=== PATIENT | female | born 1965 | race Asian ===

== ENCOUNTER 2019-01-13 17:32 | Inpatient (IN) | payer OTHER ==
[2019-01-13 17:52] VITALS: BMI 24.9
--- NOTE | 2019-01-13 18:08 | PDOC ---
History of Present Illness - General Chief Complaint: Alcohol intoxication Stated Complaint: ALCOHOL WITHDRAWAL Time Seen by Provider: 01/13/19 18:06 History Source: Patient Exam Limitations: No Limitations, Clinical Condition - History of Present Illness Initial Comments: Haritha Rodriguez is a 53 yo F w a hx of HTN, recent lyme disease, and alcohol abuse with multiple withdrawal episodes who presents to the ER stating she believes she is in withdrawal. She reports that her last drink was at 10 am this morning. She usually drinks around 1 pint of vodka daily. She states her body is shaking, she feels like she is sweating, and thinks she is currently hallucinating. She is alert to time, place, day, her birthday and which hospital she is in but she states she is very confused and is unsure that what she is seeing is real. She states she has hallucinated a great deal from alcohol withdrawal but has never had any seizures. Patient endorses significant nausea but no emesis. Patient states her hands and tongue are shaking a significant amount. She believes she is sweating a great deal. She endorses feeling extremely nervous. She also believes she is very agitated. She denies any itching, or pins and needle sensation. She endorse hand burning and numbness bilaterally. Denies sensation of ants crawling under he skin. Denies being more aware of sounds, denies sound harshness, denies being frightened by sounds, denies hearing anything disturbing, denies hearing things that she knows are not there. Denies light appearing too bright, denies color differences, denies light hurting her eyes, denies seeing anything that is disturbing her, denies seeing things she knows are not there. Denies her head feeling different. Denies feeling like there is a band around her head. She knows exactly what day it is, the correct date and month. She denies recent fevers, chills, or infections. Denies chest pain, SOB, difficulty breathing, a headache, neck pain, blurry vision, back pain, dysuria, frequency, or urgency. PCP: Ari Deutsch Alcohol Counselor: Melecio Sutton PSH: [facility] Allergies: NKA, NKDA Social Hx: Drinks around 1 pint of vodka daily. Denies smoking or other substance usage. Past History - Past Medical History Allergies/Adverse Reactions: Allergies Allergy/AdvReac Type Severity Reaction Status Date / Time No Known Allergies Allergy Verified 01/13/19 17:52 Home Medications: Ambulatory Orders Aripiprazole 5 mg PO DAILY 01/13/19 Clonidine HCl [Catapres] 0.1 mg PO ASDIR 01/13/19 Disulfiram [Antabuse] 500 mg PO DAILY 01/13/19 Doxycycline Monohydrate [Mondoxyne Nl] 100 mg PO BID 01/13/19 Duloxetine HCl 60 mg PO DAILY 01/13/19 Folic Acid 1 mg PO DAILY 01/13/19 Gabapentin 600 mg PO PRN 01/13/19 Trazodone HCl 150 mg PO HS 01/13/19 COPD: No HTN: Yes - Suicide/Smoking/Psychosocial Hx Smoking History: Never smoked Hx Alcohol Use: Yes Review of Systems - Review of Systems Able to Perform ROS?: Yes Comments:: CONSTITUTIONAL: Present: Diaphoresis Absent: fever, chills, generalized weakness, malaise, loss of appetite HEENT: Absent: rhinorrhea, nasal congestion, throat pain, throat swelling, difficulty swallowing, mouth swelling, ear pain, eye pain, visual Changes CARDIOVASCULAR: Absent: chest pain, syncope, palpitations, irregular heart rate, lightheadedness , peripheral edema RESPIRATORY: Absent: cough, shortness of breath, dyspnea with exertion, orthopnea, wheezing, stridor, hemoptysis GASTROINTESTINAL: Present: Nausea Absent: abdominal pain, abdominal distension, vomiting, diarrhea, constipation, melena, hematochezia GENITOURINARY: Absent: dysuria, frequency, urgency, hesitancy, hematuria, flank pain, genital pain MUSCULOSKELETAL: Absent: myalgia, arthralgia, joint swelling SKIN: Present: Itching Absent: rash, pallor HEMATOLOGIC/IMMUNOLOGIC: Absent: easy bleeding, easy bruising, lymphadenopathy, frequent infections ENDOCRINE: Absent: unexplained weight gain, unexplained weight loss, heat intolerance, cold intolerance NEUROLOGIC: Present: paresthesias, dizziness, unsteady gait Absent: headache, focal weakness, seizure, mental status changes, bladder or bowel incontinence PSYCHIATRIC: Present: Anxiety, hallucinations. Absent: Depression, suicidal or homicidal ideation *Physical Exam - Vital Signs Last Vital Signs Temp Pulse Resp BP Pulse Ox 98.4 F 77 18 210/121 H 99 01/13/19 17:50 01/13/19 17:50 01/13/19 17:50 01/13/19 17:50 01/13/19 17:50 - Physical Exam Comments: GENERAL: Well developed, well nourished. Awake and alert. Moderate distress. HEENT: The tongue is fasciculating. Normocephalic, atraumatic. PERRLA, EOMI. No conjunctival pallor. Sclera are non-icteric. Moist mucous membranes. Oropharynx is clear. NECK: Supple. Full ROM. No JVD. No thyromegaly. No lymphadenopathy. CARDIOVASCULAR: Tachycardic rate. Regular rhythm. No murmurs, rubs, or gallops. Distal pulses are 2+ and symmetric. PULMONARY: No evidence of respiratory distress. Lungs clear to auscultation bilaterally. No wheezing, rales or rhonchi. ABDOMINAL: Soft. Non-tender. Non-distended. No rebound or guarding. Normoactive bowel sounds. MUSCULOSKELETAL Hands are shaking. Normal range of motion at all joints. No bony deformities or tenderness. No CVA tenderness. EXTREMITIES: No cyanosis. No clubbing. No edema. No calf tenderness. SKIN: Warm and diaphoretic. Normal capillary refill. No rashes. No jaundice. NEUROLOGICAL: There is a slight nystagmus to the patient's right direction. Alert, awake, appropriate. Cranial nerves 2-12 intact. No deficits to light touch in face, upper extremities and lower extremities. No motor deficits in the in face, upper extremities and lower extremities. Normal speech. Gait is mildly ataxic. Normal finger to nose. Normal heel to monreal. No dysdiadokokinesis. PSYCHIATRIC: Cooperative. Good eye contact. Appropriate mood and affect. ED Treatment Course - LABORATORY CBC & Chemistry Diagram: 01/13/19 18:25 01/13/19 18:25 - RADIOLOGY Radiograph Interpretation: Head CT: HISTORY PROVIDED: Fall TECHNIQUE: Sequential axial images were obtained from the base of the skull to the vertex. There is no evidence of acute intracranial hemorrhage, mass lesions or infarctions. There is a mild degree of diffuse cerebral atrophy with sulcal widening and ventricular dilatation. There is no evidence of fracture or acute bony pathology. IMPRESSION: No evidence of acute intracranial pathology. Medical Decision Making - Medical Decision Making 53 yo F w a hx of HTN, recent lyme disease, and alcohol abuse with multiple withdrawal episodes who presents to the ER stating she believes she is in withdrawal. Vital Signs Temp Pulse Resp BP Pulse Ox 98.4 F 72 20 216/122 H 100 01/13/19 17:50 01/13/19 18:34 01/13/19 18:34 01/13/19 18:34 01/13/19 18:34 DDx IBNLT: Alcohol withdrawal - hallucinations, seizure, delirium tremens, Wernicke encephelopathy vs korsakof CIWA score - 23 Plan: Labs, Urine, EKG, cardiac monitoring, thiamine, banana bag, Admit to hospital. MDM: Patient fuldfils the triad for wernicke encephelopathy 1) confusion 2) Gait disturbance 3) horizontal nystagmus for opthalmoplegia Labs: Remarkable for hypokalemia - Repleting with oral potassium EKG: NS rate of 73, ID 138, Qtc - 460, Inverted T wave in aVL, aVR, V1-V4. No St elevations or depressions. Head CT: increased brain related atrophy. No acute pathology. Disposition: Admit to telemetry hospital gan for withdrawal, wernicke encephalopathy, electrolyte corrections, and further disposition. - Patient Microblogged for admission. - Patient accepted by hospitalist for admission. *DC/Admit/Observation/Transfer Diagnosis at time of Disposition: Alcohol withdrawal hallucinosis, Wernicke encephalopathy, Hypokalemia - Discharge Dispostion Condition at time of disposition: Guarded Decision to Admit order: Yes - Referrals Referrals: Ari Deutsch [Primary Care Provider] - - Patient Instructions Printed Discharge Instructions: DI for Alcohol Abuse - Post Discharge Activity CIWA Score Nausea/Vomitin-Int. Nausea w/Dry Heave Muscle Tremors: 4-Moderate,w/Arms Extend Anxiety: 4-Mod. Anxious/Guarded Agitation: 4-Moderately Restless Paroxysmal Sweats: 4-Forehead w/Sweat Beads Orientation: 0-Oriented Tacttile Disturbances: 3-Moderate Itch/Numb/Burn Auditory Disturbances: 0-None Visual Disturbances: 0-None Headache: 0-None Present CIWA-Ar Total Score: 23 - Admission Criteria OASAS Guidelines: Admission for Medically Managed Detox: Requires at least one of the followin. CIWA greater than 12 2. Seizures within the past 24 hours 3. Delirium tremens within the past 24 hours 4. Hallucinations within the past 24 hours 5. Acute intervention needed for co occurring medical disorder 6. Acute intervention needed for co occurring psychiatric disorder 7. Severe withdrawal that cannot be handled at a lower level of care (continued vomiting, continued diarrhea, abnormal vital signs) requiring intravenous medication and/or fluids 8. Patient presents the following: CIWA greater than 12, Severe withdrawal requiring intravenous medication and/or fluids Admission Criteria Met: Admission criteria met
[2019-01-13] MEDS ORDERED: chlordiazePOXIDE HCL 25 MG CAPSULE PO ONE (18:12)
[2019-01-13] MEDS ORDERED: FOLIC ACID INJECTION - 1 MG, THIAMINE HCL 100 MG, MULTIVIT INJECTION ADULT 10 ML in SOD... IVPB ONE (18:12)
[2019-01-13] MEDS ORDERED: chlordiazePOXIDE HCL 25 MG CAPSULE ONE (18:18)
[2019-01-13] MEDS ORDERED: LORazepam 2 MG/ML SDV VIAL ONE (18:19)
[2019-01-13 18:35] LABS: BASO % 0.4 % (0-2.0); EOS % 0.1 % (0-4.5); HEMATOCRIT 40.8 % (32.4-45.2); HEMOGLOBIN 13.8 GM/dL (10.7-15.3); LYMPH % 31.4 % (8-40); MCH 32.9 pg (25.7-33.7); MCHC 33.8 g/dl (32.0-36.0); MEAN CELL VOLUME 97.3 fl (80-96); MEAN PLT VOLUME 8.7 fl (7.5-11.1); MONO % 7.6 % (3.8-10.2); NEUT % 60.5 % (42.8-82.8); PLATELET COUNT 363 K/MM3 (134-434); RBC 4.19 M/mm3 (3.60-5.2); RDW 13.5 % (11.6-15.6); WHITE BLOOD COUNT 9.4 K/mm3 (4.0-10.0)
[2019-01-13 18:52] LABS: INR 1.02 (0.83-1.09)
[2019-01-13 19:03] LABS: ALBUMIN 3.9 g/dl (3.4-5.0); BILIRUBIN,TOTAL 0.4 mg/dL (0.2-1); BLOOD UREA NITROGEN 10.5 mg/dL (7-18); CALCIUM 9.2 mg/dL (8.5-10.1); CREATININE 0.8 mg/dL (0.55-1.3); POTASSIUM 3.3 mmol/L (3.5-5.1); TOT PROT 7.3 g/dl (6.4-8.2)
[2019-01-13] MEDS ORDERED: THIAMINE HCL 200 MG/2 ML VIAL IVPB ONE ×2 (19:11→23:55)
[2019-01-13] MEDS ORDERED: POTASSIUM CHLORIDE ORAL LIQUID 20 MEQ/15 ML PO ONE (19:45)
[2019-01-13] MEDS ORDERED: POTASSIUM CHLORIDE TABS 20 MEQ TABLET.ER (FP) PO ONE (19:46)
[2019-01-13] MEDS ORDERED: cloNIDine HCL 0.1 MG TABLET PO ONE (19:49)
[2019-01-13] MEDS ORDERED: cloNIDine HCL 0.1 MG TABLET ONE (19:50)
--- NOTE | 2019-01-13 19:52 | PDOC ---
Documentation entered by Paula Velazquez SCRIBE, acting as scribe for Darius Bassett MD. Darius Bassett MD: This documentation has been prepared by the scribe, Paula Velazquez SCRIBE, under my direction and personally reviewed by me in its entirety. I confirm that the documentation accurately reflects all work, treatment, procedures, and medical decision making performed by me. Attending Attestation - Resident Resident Name: Shimon Gonsalves - ED Attending Attestation I have performed the following: I have examined & evaluated the patient, The case was reviewed & discussed with the resident, I agree w/resident's findings & plan, Exceptions are as noted - HPI HPI: 01/13/19 20:00 The patient is a 53-year-old female, with a past medical history of HTN and chronic alcohol abuse, who presents to the ED with withdrawal symptoms. The patients last drink was at 10 AM this morning and she usually drinks 1 pint of vodka daily. She now states that she is experiencing sweating, shaking, and hallucinating. - Physicial Exam PE: 01/13/19 19:48 Patient is somnolent but easily arousable, well-nourished, in no distress Normocephalic and atraumatic PERRLA, EOMI, right endpoint nystagmus is noted, fatigable CTA RRR Abdomen is soft, nontender, nondistended + Bilateral trauma AOx3, moving all extremities symmetrically, gait-ataxic - Medical Decision Making 01/13/19 19:50 Patient is a 53-year-old female with history of chronic alcohol abuse who presents with elevated blood pressure, agitation and ataxic gait. Patient's symptoms are consistent with acute alcohol withdrawal. Wernicke's encephalopathy suspected. We'll administer multivitamins, thiamine and folic acid. We'll obtain CBC/CMP. We'll consider administration of benzodiazepines for control of symptoms. Likely admission.
[2019-01-13 20:06] LABS: MAGNESIUM 2.2 mg/dL (1.8-2.4)
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
--- NOTE | 2019-01-13 23:50 | PN ---
Teaching Attending Note Name of Resident: Mayte Weber ATTENDING PHYSICIAN STATEMENT I saw and evaluated the patient. I reviewed the resident's note and discussed the case with the resident. I agree with the resident's findings and plan as documented. SUBJECTIVE: Seen and examined; please see resident note for HPI/PMH/PSH/FH/SH/ROS discussion. Briefly, this is a 53 y/o female presenting with EtOH WD sx, last drink stated at 10AM. Concern noted by ER of Wernicke's encephalopathy. Noted to have SBP >200 OBJECTIVE: NAD, AAO, Resting comfortably in bed No further hallucination, normal speech, poor insight, not altered. CIWA negligable RRR s1/[address] reviewed; no evidence intracranial pathology EKG reviewed CBC with mild macrocytosis to 97, coags wnl, K 3.3, normal NH4, EtOH 17.7 ASSESSMENT AND PLAN: Patient presents with alcohol WD; there was concern in ER for Wernicke's # Alcohol WD/Alcohol Abuse # HTN Urgency # Gait disturbances # Mactrocytosis # Hypokalemia Will give the 500 dose of thiamine but not fully convinced is wernickes given the lack of optic findings and lack of gait disturbance. Can consider re-eval in AM. Can check MRI if suspicion persists (no 'findings' for wernickes persay on MRI but T2 weighted, etc. can have some subtle changes).
[2019-01-14] MEDS ORDERED: chlordiazePOXIDE HCL 10 MG CAPSULE PO PRN (00:31)
[2019-01-14] MEDS ORDERED: POTASSIUM CHLORIDE TABS 10 MEQ TABLET.ER (FP) PO SCH (00:33)
[2019-01-14 00:58] LABS: EPI CELLS 10.4 /HPF (0-5/HPF); HYALINE CASTS 10 /lpf (0-8); PH,URINE 7.5 (5.0-8.0); URINE APPEARANCE CLEAR; URINE BACTERIA 180.9 /hpf (NEGATIVE); URINE BILIRUBIN NEGATIVE (NEGATIVE); URINE COLOR DK YELLOW; URINE GLUCOSE (UA) NEGATIVE (NEGATIVE); URINE KETONE TRACE (NEGATIVE); URINE LEUK ESTERASE TRACE (NEGATIVE); URINE NITRITE NEGATIVE (NEGATIVE); URINE PROTEIN TRACE (NEGATIVE); URINE RBC 1 /hpf (0-4); URINE WBC 4 /hpf (0-5)
[2019-01-14 01:14] LABS: COCAINE, UR NEGATIVE ng/ml (CUTOFF=300); METHADONE, UR NEGATIVE ng/ml (CUTOFF=300); OPIATES, URI NEGATIVE ng/ml (CUTOFF=300); PHENCYCLIDINE,URINE NEGATIVE ng/ml (CUTOFF=25); URINE AMPHETAMINES NEGATIVE ng/ml (CUTOFF=500); URINE BARBITURATES NEGATIVE ng/ml (CUTOFF=200)
[2019-01-14 01:21] LABS: URINE BENZODIAZEPINES POSITIVE ng/ml (CUTOFF=200)
[2019-01-14] MEDS ORDERED: cloNIDine HCL 0.1 MG TABLET PO SCH ×3 (01:45→22:00)
[2019-01-14] MEDS ORDERED: PATIENT'S OWN MEDICATION (NON-FORMULARY) (Gabapentin [Gabapentin] 600 MG) PO SCH (01:45)
[2019-01-14] MEDS ORDERED: cloNIDine HCL 0.1 MG TABLET ONE (01:48)
[2019-01-14] MEDS ORDERED: LISINOPRIL 5 MG TABLET (FP) ONE ×2 (06:03→12:46)
[2019-01-14] MEDS ORDERED: THIAMINE HCL 200 MG/2 ML VIAL ONE (06:08)
[2019-01-14] MEDS: THIAMINE HCL 200 MG/2 ML VIAL IVPB SCH ×2 (06:15→14:02)
[2019-01-14] MEDS ORDERED: DISULFIRAM 500 MG PO SCH (10:00)
[2019-01-14] MEDS ORDERED: LISINOPRIL 5 MG TABLET (FP) PO SCH (10:00)
[2019-01-14] MEDS ORDERED: THIAMINE HCL 200 MG/2 ML VIAL IVPB SCH (10:00)
[2019-01-14] MEDS: FOLIC ACID 1 MG TABLET (FP) PO SCH (10:10)
[2019-01-14] MEDS: POTASSIUM CHLORIDE TABS 20 MEQ TABLET.ER (FP) PO SCH (10:10)
[2019-01-14] MEDS: ENOXAPARIN NA (PORCINE) 40 MG/0.4 ML DISP.SYRIN SQ SCH (10:10)
[2019-01-14] MEDS: ARIPiprazole 5 MG TABLET (FP) PO SCH (10:10)
[2019-01-14] MEDS ORDERED: LISINOPRIL 10 MG TABLET (FP) PO ONE (12:27)
[2019-01-14] MEDS ORDERED: FOLIC ACID INJECTION - 1 MG, THIAMINE HCL 100 MG, MULTIVIT INJECTION ADULT 10 ML in SOD... IVPB ONE (13:10)
--- NOTE | 2019-01-14 13:53 | PN ---
Teaching Attending Note Name of Resident: Zoey Arthur ATTENDING PHYSICIAN STATEMENT I saw and evaluated the patient. I reviewed the resident's note and discussed the case with the resident. I agree with the resident's findings and plan as documented. SUBJECTIVE:reports feeling anxious with mild DEMARCO. came here for detox. is not complaint with home medications. denies CP, SOB, fever, chills, N/V/C/D, auditory and visual hallucinations OBJECTIVE: Last Vital Signs Temp Pulse Resp BP Pulse Ox 98.0 F 62 17 167/108 H 97 01/14/19 07:24 01/14/19 07:24 01/14/19 07:24 01/14/19 07:24 01/14/19 07:24 General mildly anxious CV S1 S2 RRR no murmur/rub/gallop lungs CTA B/L no wheezing/rales/rhonchi Abdomen soft NT/ND Extremities no tremors ASSESSMENT AND PLAN: 53yo F with PMH depression, HTN adn continuous ETOH dependence presented to the ER for detox and found to have HTN urgency 1. Acute ETOH withdrawal- CIWA 7. on librium detox. will give banana bag. IVF. not sure if she is interested in inpatient program once detox is completed. halfway house counselor on perils of continued ETOH use 2. HTN urgency- received clonidine 0.1mg x1 and lisinopril 10mg. will start clonidine BID standing and cont with lisinopril. will titrate to optimize BP slowly. Head CT noted 3. hypokalmeia- Kcl po and IV 4. depression- cont home medications 5. DVT ppx- lovenox
[2019-01-14] MEDS ORDERED: amLODIPine BESYLATE 5 MG TABLET (FP) ONE (15:04)
[2019-01-14] MEDS: amLODIPine BESYLATE 10 MG TABLET (FP) PO SCH (15:15)
[2019-01-14] MEDS ORDERED: hydrALAZINE HCL 25 MG TABLET (FP) PO ONE (15:57)
--- NOTE | 2019-01-14 15:57 | PN ---
Physical Exam: SUBJECTIVE: Patient seen and examined at bedside. pt was anxious and slightly tremulous. pt stated she felt like nothing is real but denied hallucinations. pt states she feels confused OBJECTIVE: Vital Signs Period Temp Pulse Resp BP Sys/Smith Pulse Ox Last 24 Hr 98.0 F-98.4 F 58-77 17-20 167-216/97-122 97-100 GENERAL: The patient is awake, alert, and oriented, in no acute distress. HEAD: Normal with no signs of trauma. ENT: moist mucous membranes, mild tongue fasciculations LUNGS: Breath sounds equal, clear to auscultation bilaterally, no wheezes, no crackles, no accessory muscle use. HEART: Regular rate and rhythm, S1, S2 without murmur, rub or gallop. ABDOMEN: Soft, nontender, nondistended, normoactive bowel sounds, no guarding EXTREMITIES: 2+ pulses, warm, well-perfused, no edema. PSYCH: Normal mood, normal affect. SKIN: Warm, dry, normal turgor, no rashes or lesions noted CIWA 7 at around 7 am Laboratory Last Values WBC 9.4 K/mm3 (4.0-10.0) 01/13/19 18:25 RBC 4.19 M/mm3 (3.60-5.2) 01/13/19 18:25 Hgb 13.8 GM/dL (10.7-15.3) 01/13/19 18:25 Hct 40.8 % (32.4-45.2) 01/13/19 18:25 MCV 97.3 fl (80-96) H 01/13/19 18:25 MCH 32.9 pg (25.7-33.7) 01/13/19 18:25 MCHC 33.8 g/dl (32.0-36.0) 01/13/19 18:25 RDW 13.5 % (11.6-15.6) 01/13/19 18:25 Plt Count 363 K/MM3 (134-434) 01/13/19 18:25 MPV 8.7 fl (7.5-11.1) 01/13/19 18:25 Absolute Neuts (auto) 5.7 K/mm3 (1.5-8.0) 01/13/19 18:25 Neutrophils % 60.5 % (42.8-82.8) 01/13/19 18:25 Lymphocytes % 31.4 % (8-40) 01/13/19 18:25 Monocytes % 7.6 % (3.8-10.2) 01/13/19 18:25 Eosinophils % 0.1 % (0-4.5) 01/13/19 18:25 Basophils % 0.4 % (0-2.0) 01/13/19 18:25 Nucleated RBC % 0 % (0-0) 01/13/19 18:25 ESR 28 mm/hr (0-30) 01/13/19 18:22 PT with INR 12.00 SEC (9.7-13.0) 01/13/19 18:25 INR 1.02 (0.83-1.09) 01/13/19 18:25 Sodium 144 mmol/L (136-145) 01/13/19 18:25 Potassium 3.3 mmol/L (3.5-5.1) L 01/13/19 18:25 Chloride 106 mmol/L (98-107) 01/13/19 18:25 Carbon Dioxide 30 mmol/L (21-32) 01/13/19 18:25 Anion Gap 7 MMOL/L (8-16) L 01/13/19 18:25 BUN 10.5 mg/dL (7-18) 01/13/19 18:25 Creatinine 0.8 mg/dL (0.55-1.3) 01/13/19 18:25 Est GFR (CKD-EPI)AfAm 96.19 01/13/19 18:25 Est GFR (CKD-EPI)NonAf 83.00 01/13/19 18:25 Random Glucose 101 mg/dL (74-106) 01/13/19 18:25 Calcium 9.2 mg/dL (8.5-10.1) 01/13/19 18:25 Magnesium 2.2 mg/dL (1.8-2.4) 01/13/19 18:25 Total Bilirubin 0.4 mg/dL (0.2-1) 01/13/19 18:25 AST 18 U/L (15-37) 01/13/19 18:25 ALT 14 U/L (13-61) 01/13/19 18:25 Alkaline Phosphatase 68 U/L (45-117) 01/13/19 18:25 Ammonia 20.10 umol/L (11-32) 01/13/19 18:25 C-Reactive Protein < 0.3 MG/DL (0.00-0.3) 01/13/19 18:22 Total Protein 7.3 g/dl (6.4-8.2) 01/13/19 18:25 Albumin 3.9 g/dl (3.4-5.0) 01/13/19 18:25 Vitamin B12 1385 pg/ml (193-986) H 01/13/19 18:22 Urine Color Dk yellow 01/14/19 00:30 Urine Appearance Clear 01/14/19 00:30 Urine pH 7.5 (5.0-8.0) 01/14/19 00:30 Ur Specific [place] 1.029 (1.010-1.035) 01/14/19 00:30 Urine Protein Trace (NEGATIVE) 01/14/19 00:30 Urine Glucose (UA) Negative (NEGATIVE) 01/14/19 00:30 Urine Ketones Trace (NEGATIVE) H 01/14/19 00:30 Urine Blood Negative (NEGATIVE) 01/14/19 00:30 Urine Nitrite Negative (NEGATIVE) 01/14/19 00:30 Urine Bilirubin Negative (NEGATIVE) 01/14/19 00:30 Urine Urobilinogen 1.0 mg/dL (0.2-1.0) 01/14/19 00:30 Ur Leukocyte Esterase Trace (NEGATIVE) 01/14/19 00:30 Urine WBC (Auto) 4 /hpf (0-5) 01/14/19 00:30 Urine RBC (Auto) 1 /hpf (0-4) 01/14/19 00:30 Urine Casts (Auto) 10 /lpf (0-8) 01/14/19 00:30 U Epithel Cells (Auto) 10.4 /HPF (0-5/HPF) 01/14/19 00:30 Urine Bacteria (Auto) 180.9 /hpf (NEGATIVE) 01/14/19 00:30 Salicylates < 1.7 mg/dL (2.8-20) L 01/13/19 18:25 Opiates Screen Negative ng/ml (MXGQLJ=553) 01/14/19 00:30 Methadone Screen Negative ng/ml (YICOJM=400) 01/14/19 00:30 Acetaminophen < 2.0 ug/mL (10-30) L 01/13/19 18:25 Barbiturate Screen Negative ng/ml (VRAHTK=628) 01/14/19 00:30 Phencyclidine Screen Negative ng/ml (CUTOFF=25) 01/14/19 00:30 Ur Amphetamines Screen Negative ng/ml (SJSOAI=763) 01/14/19 00:30 MDMA (Ecstasy) Screen Negative ng/ml (BWAEPD=685) 01/14/19 00:30 Benzodiazepines Screen Positive ng/ml (EUJVSW=560) A* 01/14/19 00:30 Cocaine Screen Negative ng/ml (HOJOTK=570) 01/14/19 00:30 U Marijuana (THC) Screen Negative ng/ml (CUTOFF=50) 01/14/19 00:30 Alcohol, Quantitative 17.7 mg/dL (0.0-5.0) H 01/13/19 18:25 Active Medications Amlodipine Besylate (Norvasc -) 10 mg PO DAILY [facility] Last Admin: 01/14/19 15:15 Dose: 10 mg Aripiprazole (Abilify) 5 mg PO DAILY [facility] Last Admin: 01/14/19 10:10 Dose: 5 mg Chlordiazepoxide HCl (Librium -) 10 mg PO Q12H PRN PRN Reason: Signs/symptoms of Withdrawal Stop: 01/17/19 23:59 Chlordiazepoxide HCl (Librium -) 10 mg PO Q8H PRN PRN Reason: Signs/symptoms of Withdrawal Stop: 01/16/19 23:59 Chlordiazepoxide HCl (Librium -) 25 mg PO Q8H [facility] Stop: 01/15/19 21:01 Chlordiazepoxide HCl (Librium -) 15 mg PO Q8H [facility] Stop: 01/16/19 21:01 Chlordiazepoxide HCl (Librium -) 10 mg PO Q8H [facility] Stop: 01/17/19 21:01 Chlordiazepoxide HCl (Librium -) 10 mg PO ONCE ONE Stop: 01/18/19 05:01 Clonidine (Catapres -) 0.1 mg PO BID [facility] Enoxaparin Sodium (Lovenox -) 40 mg SQ DAILY [facility] Last Admin: 01/14/19 10:10 Dose: 40 mg Folic Acid (Folic Acid -) 1 mg PO DAILY [facility] Last Admin: 01/14/19 10:10 Dose: 1 mg Lisinopril (Prinivil) 5 mg PO DAILY [facility] Last Admin: 01/14/19 10:10 Dose: 5 mg Potassium Chloride (K-Dur -) 40 meq PO DAILY [facility] Last Admin: 01/14/19 10:10 Dose: 40 meq Trazodone HCl (Desyrel -) 150 mg PO [facility] ASSESSMENT/PLAN: 53yo female with history of chronic alcohol abuse, depression, HTN, and Lyme disease p/w alcohol withdrawal. The patient has a history of heaving drinking for the last 5 years and drinks about 1 pint vodka a day. She has been in rehab multiple times, the last of which she was discharged about 3 weeks ago. She has been attending outpatient therapy with Lesley Majano at [facility]. Her last reported drink was 01/12/19 . 01/13 she began having diaphoresis, tremors, and visual hallucinations. Today, on exam pt had CIWA of 7. Today pt SBP> 180. Alcohol abuse/ withdrawal -c/w banana bag -c/w thiamine -patient possibly interested in detox program HTN urgency -pt continued on home clonidine dose -pt started on lisinopril 10 , BP still elevated -s/p Hydralazine 25 PO -Hydralazine 10 ivp prn if BP>180. Hypokalemia -s/p KCl Depression -c/w home meds DVT ppx: lovenox Dispo: possibly rehab/ [facility] tomorrow Visit type - Emergency Visit Emergency Visit: Yes ED Registration Date: 01/13/19 Care time: The patient presented to the Emergency Department on the above date and was hospitalized for further evaluation of their emergent condition. - New Patient This patient is new to me today: Yes Date on this admission: 01/14/19 - Critical Care Critical Care patient: No - Discharge Referral Referred to [facility] Med P.C.: No ATTENDING PHYSICIAN STATEMENT I saw and evaluated the patient. I reviewed the resident's note and discussed the case with the resident. I agree with the resident's findings and plan as documented. SUBJECTIVE: OBJECTIVE: ASSESSMENT AND PLAN:
[2019-01-14] MEDS ORDERED: hydrALAZINE HCL 20 MG/ML VIAL IVPUSH PRN ×2 (16:06→16:13)
--- NOTE | 2019-01-14 17:03 | EKG ---
Test Reason : Blood Pressure : / mmHG Vent. Rate : 073 BPM Atrial Rate : 073 BPM P-R Int : 138 ms QRS Dur : 090 ms QT Int : 418 ms P-R-T Axes : 048 062 051 degrees QTc Int : 460 ms NORMAL SINUS RHYTHM POSSIBLE LEFT ATRIAL ENLARGEMENT NONSPECIFIC T WAVE ABNORMALITY PROLONGED QT ABNORMAL ECG NO PREVIOUS ECGS AVAILABLE Confirmed by DEYA OROZCO MD ([id number]) on 01/14/2019 5:03:10 PM Referred By: Confirmed By:DEYA OROZCO MD
[2019-01-14] MEDS ORDERED: chlordiazePOXIDE 5 MG CAPSULE ONE (18:10)
[2019-01-14] MEDS: chlordiazePOXIDE HCL 25 MG CAPSULE PO SCH (20:36)
[2019-01-14] MEDS: cloNIDine HCL 0.1 MG TABLET PO SCH (21:15)
[2019-01-14] MEDS ORDERED: traZODone HCL 50 MG TABLET (FP) PO SCH (22:00)
[2019-01-15] MEDS: chlordiazePOXIDE HCL 25 MG CAPSULE PO SCH (04:24)
[2019-01-15 06:20] LABS: HEMATOCRIT 36.4 % (32.4-45.2); HEMOGLOBIN 12.5 GM/dL (10.7-15.3); MCH 33.3 pg (25.7-33.7); MCHC 34.5 g/dl (32.0-36.0); MEAN CELL VOLUME 96.4 fl (80-96); MEAN PLT VOLUME 9.1 fl (7.5-11.1); PLATELET COUNT 302 K/MM3 (134-434); RBC 3.77 M/mm3 (3.60-5.2); RDW 13.6 % (11.6-15.6); WHITE BLOOD COUNT 7.6 K/mm3 (4.0-10.0)
[2019-01-15] MEDS: cloNIDine HCL 0.1 MG TABLET PO SCH (06:33)
[2019-01-15 06:45] LABS: ALBUMIN 3.3 g/dl (3.4-5.0); BILIRUBIN,TOTAL 0.8 mg/dL (0.2-1); BLOOD UREA NITROGEN 5.8 mg/dL (7-18); CREATININE 0.7 mg/dL (0.55-1.3); POTASSIUM 3.6 mmol/L (3.5-5.1); TOT PROT 6.4 g/dl (6.4-8.2)
[2019-01-15] MEDS ORDERED: LISINOPRIL 20 MG TABLET (FP) PO SCH (10:00)
[2019-01-15] MEDS ORDERED: PT OWN MED DRAWER 7, Y5N ONE (10:16)
[2019-01-15] MEDS: FOLIC ACID 1 MG TABLET (FP) PO SCH (10:19)
[2019-01-15] MEDS: amLODIPine BESYLATE 10 MG TABLET (FP) PO SCH (10:19)
[2019-01-15] MEDS: ENOXAPARIN NA (PORCINE) 40 MG/0.4 ML DISP.SYRIN SQ SCH (10:19)
[2019-01-15] MEDS: ARIPiprazole 5 MG TABLET (FP) PO SCH (10:20)
[2019-01-15] MEDS: POTASSIUM CHLORIDE TABS 20 MEQ TABLET.ER (FP) PO SCH (10:20)
--- NOTE | 2019-01-15 11:03 | PN ---
Teaching Attending Note Name of Resident: Zoey Arthur ATTENDING PHYSICIAN STATEMENT I saw and evaluated the patient. I reviewed the resident's note and discussed the case with the resident. I agree with the resident's findings and plan as documented. SUBJECTIVE:mildly anxious. denies Cp, SOB, fever, chills, blurred vision, DEMARCO, N/ V/C/D OBJECTIVE: Last Vital Signs Temp Pulse Resp BP Pulse Ox 97.9 F 72 18 138/99 98 01/15/19 06:00 01/15/19 06:00 01/15/19 06:00 01/15/19 06:00 01/14/19 21:00 General mildly anxious HEENT no nystagmus CV S1 S2 RRR no murmur/rub/gallop lungs CTA B/L no wheezing/rales/rhonchi Abdomen soft NT/ND Extremities no tremors ASSESSMENT AND PLAN: 53yo F with PMH depression, HTN adn continuous ETOH dependence presented to the ER for detox and found to have HTN urgency 1. Acute ETOH withdrawal- CIWA 3. on librium detox. not interested in inpatient rehab. 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 HTN urgency-received hydralazine 10mg IVP and started on norvasc. BP well controlled now. clonidine was held this AM. will cont with norvasc and lisinopril at this time. will see if clonidine needs to be re-started. will likely require multiple drugs. stressed importance of being complaint with meds daily regardless of symptoms and need for further cardiac workup by per primary. 3. hypokalmeia- resolved 4. depression- cont home medications 5. DVT ppx- lovenox 6. plan to transfer to [facility] today to complete detox regimen. awaiting to hear if bed is available at [facility] and acceptance by facility
[2019-01-15] MEDS ORDERED: cloNIDine HCL 0.1 MG TABLET PO SCH (11:21)
[2019-01-15] MEDS ORDERED: HYDROCHLOROTHIAZIDE 25 MG TABLET (FP) PO SCH (12:15)
[2019-01-15 12:45] VITALS: BP 120/83; PULSE 78; TEMP 98.2
--- NOTE | 2019-01-15 16:44 | DS ---
Physical Exam: SUBJECTIVE: Patient seen and examined at bedside. Pt has no acute complaints. Pt states she is feeling better OBJECTIVE: Vital Signs Period Temp Pulse Resp BP Sys/Smith Pulse Ox Last 24 Hr 97.9 F-98.5 F 68-88 17-20 120-179/82-113 98-98 PHYSICAL EXAM GENERAL: The patient is awake, alert, and fully oriented, in no acute distress. LUNGS: Breath sounds equal, clear to auscultation bilaterally, no wheezes, no crackles, no accessory muscle use. HEART: Regular rate and rhythm, S1, S2 without murmur, rub or gallop. ABDOMEN: Soft, nontender, nondistended, normoactive bowel sounds, no guarding EXTREMITIES: 2+ pulses, warm, well-perfused, no edema. NEUROLOGICAL: Normal speech, gait not observed. SKIN: Warm, dry, normal turgor, no rashes or lesions noted. LABS Laboratory Results - last 24 hr 01/15/19 01/15/19 05:40 05:40 WBC 7.6 RBC 3.77 Hgb 12.5 Hct 36.4 MCV 96.4 H MCH 33.3 MCHC 34.5 RDW 13.6 Plt Count 302 MPV 9.1 Sodium 141 Potassium 3.6 Chloride 105 Carbon Dioxide 31 Anion Gap 5 L BUN 5.8 L Creatinine 0.7 Est GFR (CKD-EPI)AfAm 113.05 Est GFR (CKD-EPI)NonAf 97.54 Random Glucose 109 H Calcium 9.0 Total Bilirubin 0.8 AST 18 ALT 14 Alkaline Phosphatase 67 Total Protein 6.4 Albumin 3.3 L HOSPITAL COURSE: Date of Admission:01/13/19 53yo female with history of chronic alcohol abuse, depression, HTN, and Lyme disease p/w alcohol withdrawal. The patient has a history of heaving drinking for the last 5 years and drinks about 1 pint vodka a day. She has been in rehab multiple times, the last of which she was discharged about 3 weeks ago. She has been attending outpatient therapy with Lesley Majano at [facility]. Her last reported drink was 01/12/19 . 01/13 she began having diaphoresis, tremors, and visual hallucinations. Pt was placed on librium protocol, thiamine, banana bag, KCl to replete electrolytes. While admitted, the pt had SBP> 180. Pt was given Lisinopril 15, norvasc 10, clonidine 10, and hydralazine 25. The BP stabilized. The pt is instructed to take Lisinopril 20, norvasc 10, and hctz 25 at home and to follow up with her PCP for BP management. The pt is instructed not to take her clonidine any more. If HTN persists, pt should request further workup for other causes of htn. the pt was instructed to no longer take disulfram when drinking. Pt is going to [facility] to complete the detox. Date of Discharge: 01/15/19 Minutes to complete discharge: 38 Discharge Summary Reason For Visit: ALCOHOL WITHDRAWAL Condition: Improved - Instructions Diet, Activity, Other Instructions: You were admitted to the hospital for alcohol withdrawal. You were treated with Librium and fluids. Abnormal Findings: -While you were in the hospital, your blood pressure was elevated, you were treated with several blood pressure medications. Medications: -Please continue to take Lisinopril 20mg, Hydrochlorothiazide 25mg, Norvasc 10 mg once a day for your blood pressure -Please do not take the Clonidine -DO NOT take Disulfram while you drink alcohol -Please continue to take your other home medications as prescribed. You MUST follow up with your primary care physician, Dr. Shen to continue to manage your blood pressure. If your high blood pressure persists, your physician should evaluate you for other causes of high blood pressure. Please maintain a low salt diet. You are being discharged to [facility]. Please return to the ER if you have any signs or symptoms of chest pain, shortness of breath, uncontrollable fever, chills, nausea, vomiting, numbness, tingling, or weakness in any part of your body, changes in vision, or slurred speech. Please return to the ER if symptoms persist, worsen, or new symptoms arise. Referrals: Claudia Lackey DO [Staff Physician] - Disposition: PHYSICAL REHABILATION FACILITY - Home Medications Comprehensive Discharge Medication List: Ambulatory Orders Aripiprazole 5 mg PO DAILY 01/13/19 Disulfiram [Antabuse] 250 mg PO DAILY 01/13/19 Duloxetine HCl 60 mg PO DAILY 01/13/19 Folic Acid 1 mg PO DAILY 01/13/19 Trazodone HCl 150 mg PO HS 01/13/19 Rosuvastatin Calcium [Crestor] 10 mg PO DAILY 01/14/19 Amlodipine Besylate [Norvasc -] 10 mg PO DAILY tablet 01/15/19 Azilsartan Med/Chlorthalidone [Edarbyclor 40-12.5 mg Tablet] 1 each PO DAILY 06/24 Clonidine HCl 0.1 mg PO BID PRN 01/15/19 Doxycycline Hyclate 100 mg PO BID 01/15/19 Ergocalciferol [Vitamin D2] 50,000 unit PO Q7D@1000 01/15/19 Gabapentin [Neurontin] 300 mg PO TID 01/15/19 Hydrochlorothiazide [Hctz -] 25 mg PO DAILY tablet 01/15/19 Lisinopril [Prinivil] 20 mg PO DAILY tablet 01/15/19 Thiamine HCl [B-1] 100 mg PO DAILY 01/15/19 This patient is new to me today: No Emergency Visit: No Critical Care patient: No - Discharge Referral Referred to [facility] Med P.C.: No ATTENDING PHYSICIAN STATEMENT I saw and evaluated the patient. I reviewed the resident's note and discussed the case with the resident. I agree with the resident's findings and plan as documented. SUBJECTIVE: OBJECTIVE: ASSESSMENT AND PLAN:
[2019-01-16] MEDS ORDERED: chlordiazePOXIDE 5 MG CAPSULE PO SCH (05:00)
[2019-01-17] MEDS ORDERED: chlordiazePOXIDE HCL 10 MG CAPSULE PO PRN
[2019-01-17] MEDS ORDERED: chlordiazePOXIDE HCL 10 MG CAPSULE PO SCH (05:00)
== END 2019-01-15 13:45 | DRG 775 ==
LOC: JER 17:32 → JERBED 21:45 → J4W 01-14 16:27
PROVIDERS: ADMIT Internal Medicine; ATTEND Internal Medicine
PROC: HZ2ZZZZ Detoxification Services for Substance Abuse Treatment (ICD-10-PCS; principal; 2019-01-15)
DX: F10.239 Alcohol dependence with withdrawal, unspecified (principal); I16.0 Hypertensive urgency; E87.6 Hypokalemia; E51.2 Wernicke's encephalopathy; R44.1 Visual hallucinations; D75.89 Other specified diseases of blood and blood-forming organs; F31.89 Other bipolar disorder; I10 Essential (primary) hypertension; F10.24 Alcohol dependence with alcohol-induced mood disorder; R25.1 Tremor, unspecified
CPT/HCPCS: 36415; 70450-TC; 80053; 80307; 81003; 82140; 82607; 83735; 84207; 85025; 85027; 85610; 85651; 86140; 93005; 93010; 99285-25; J0735; J7030

== ENCOUNTER 2019-01-15 14:16 | Inpatient (IN) | payer OTHER ==
[2019-01-15 15:40] VITALS: BMI 27.3
--- NOTE | 2019-01-15 17:27 | HP ---
CIWA Score Nausea/Vomitin-No Nausea/No Vomiting Muscle Tremors: 1-None Visible, but [place] Anxiety: 2 Agitation: 1-Slight > Activity Paroxysmal Sweats: No Perspiration Orientation: 0-Oriented Tacttile Disturbances: 0-None Auditory Disturbances: 0-None Visual Disturbances: 0-None Headache: 3-Moderate CIWA-Ar Total Score: 7 - Admission Criteria [facility] Guidelines: Admission for Medically Managed Detox: Requires at least one of the followin. CIWA greater than 12 2. Seizures within the past 24 hours 3. Delirium tremens within the past 24 hours 4. Hallucinations within the past 24 hours 5. Acute intervention needed for co occurring medical disorder 6. Acute intervention needed for co occurring psychiatric disorder 7. Severe withdrawal that cannot be handled at a lower level of care (continued vomiting, continued diarrhea, abnormal vital signs) requiring intravenous medication and/or fluids 8. Admission ROS [facility] Chief Complaint: 53 y/o F with PMH depression, HTN, Lyme's disease (was tx jacob martinez, was told it was recurring), who presents for continued alcohol detox. Allergies/Adverse Reactions: Allergies Allergy/AdvReac Type Severity Reaction Status Date / Time No Known Allergies Allergy Verified 01/15/19 15:20 History of Present Illness: 53 y/o F with PMH depression, HTN, Lyme's disease (was tx w doxy, was told it was recurring), who presents for continued alcohol detox. Per pt, she was just at [facility] for alcohol withdrawal. Initially, she was doing outpatient rehab at [facility] in [place] for 2 months in November and December. States that while she was in rehab, she relapsed and started drinking again. Was drinking 1 pint of Vodka daily at least. She discussed with her counselor who recommended that she go to a program. In the interim, she had also tried to go to [facility], who also recommended a program. Pt went to [facility] ED and was admitted for alcohol withdrawal with visual hallucination, with elevated BP. While there , she was maintained on the Librium protocol which she will continue (starting with librium 15mg dose). She was also d/c on lisinopril 20mg qd, norvasc 10mg qd , HCTZ 25 mg qd for improved BP control. After detox, patient would like to do rehab. 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 denies cigarette or other illicit drugs. alcohol use as above - Ebola screening Have you traveled outside of the country in the last 21 days: No (N) Have you had contact with anyone from an Ebola affected area: No Do you have a fever: No - Review of Systems Constitutional: Chills EENT: reports: Blurred Vision Respiratory: reports: No Symptoms reported Cardiac: reports: No Symptoms Reported GI: reports: No Symptoms Reported : reports: No Symptoms Reported Musculoskeletal: reports: Muscle Pain Integumentary: reports: No Symptoms Reported Neuro: reports: No Symptoms reported Endocrine: reports: No Symptoms Reported Hematology: reports: No Symptoms Reported Psychiatric: reports: Orientated x3, Anxious, Depressed Patient History - Patient Medical History Hx Anemia: No Hx Asthma: No Hx Chronic Obstructive Pulmonary Disease (COPD): No Hx Cancer: No Hx Cardiac Disorders: No Hx Congestive Heart Failure: No Hx Hypertension: Yes Hx Hypercholesterolemia: Yes Hx Pacemaker: No HX Cerebrovascular Accident: No Hx Seizures: No Hx Dementia: No Hx Diabetes: No Hx Gastrointestinal Disorders: No Hx Liver Disease: No Hx Genitourinary Disorders: No Hx Sexually Transmitted Disorders: No Hx Renal Disease (ESRD): No Hx Thyroid Disease: No Hx Human Immunodeficiency Virus (HIV): No Hx Hepatitis C: No Hx Depression: Yes Hx Suicide Attempt: No Hx Bipolar Disorder: No Hx Schizophrenia: No Other Medical History: Lyme disease - Patient Surgical History Past Surgical History: Yes Hx Neurologic Surgery: No Hx Cataract Extraction: No Hx Cardiac Surgery: No Hx Lung Surgery: No Hx Breast Surgery: No Hx Breast Biopsy: No Hx Abdominal Surgery: No Hx Appendectomy: No Hx Cholecystectomy: No Hx Genitourinary Surgery: No Hx Section: No Hx Orthopedic Surgery: No Hx Hysterectomy: No Other Surgical History: myomectomy 1997 for fibroids - PPD History Documented Results: Negative w/o proof PPD to be Administered?: No - Reproductive History Patient is a Female of Child Bearing Age (11 -55 yrs old): Yes Last Menstrual Period: 07/07/14 Patient : No - Smoking Cessation Smoking history: Never smoked Have you smoked in the past 12 months: No Hx Chewing Tobacco Use: No - Substance & Tx. History Hx Alcohol Use: Yes Hx Substance Use: Yes Substance Use Type: Alcohol Hx Substance Use Treatment: Yes ([facility]) - Substances abused Other Substance route: Oral Frequency: Daily Amount used: 1 P[place]ODKA Age of first use: 43 Date of last use: 01/11/19 Family Disease History - Family Disease History Family Disease History: Other: Grandparent (suicidal), Father (stroke, alcoholic , dm, manic) Admission Physical Exam [facility] - Vital Signs Vital Signs: Vital Signs - 24 hr 01/15/19 15:14 Temperature 97.8 F Pulse Rate 80 Respiratory 16 Rate Blood Pressure 139/96 - Physical General Appearance: Yes: Within Normal Limits HEENTM: Yes: Normocephalic, SHONA Respiratory: Yes: Within Normal Limits Neck: Yes: Supple Breast: Yes: Breast Exam Deferred Cardiology: Yes: Within Normal Limits, Regular Rate, S1, S2 Abdominal: Yes: Within Normal Limits, Soft Genitourinary: Yes: Within Normal Limits Back: Yes: Within Normal Limits, Normal Inspection Musculoskeletal: Yes: Within Normal Limits Extremities: Yes: Within Normal Limits, Normal Inspection, Normal Range of Motion Neurological: Yes: Within Normal Limits, manager of regulatory affairs II-XII NML intact Integumentary: Yes: Within Normal Limits Lymphatic: Yes: Within Normal Limits - Diagnostic (1) Hypertension Current Visit: Yes Status: Chronic (2) Hyperlipidemia Current Visit: Yes Status: Chronic (3) Depression Current Visit: Yes Status: Chronic (4) Alcohol withdrawal hallucinosis Current Visit: No Status: Acute Cleared for Admission [facility] - Detox or Rehab [facility] Level of Care: Medically Managed Detox Regimen/Protocol: Librium Inpatient Rehab Admission - Rehab Decision to Admit Inpatient rehab admission?: No
[2019-01-15] MEDS ORDERED: IBUPROFEN 400 MG TABLET (FP) PO PRN (17:50)
[2019-01-15] MEDS ORDERED: MAG HYDROX/AL HYDROX/SIMETH 30 ML UNIT-DOSE CUP PO PRN (17:50)
[2019-01-15] MEDS ORDERED: ACETAMINOPHEN 325 MG TABLET (FP) PO PRN ×2 (17:50)
[2019-01-15] MEDS ORDERED: BISMUTH SUBSALICYLATE 524 MG/30 ML UD PO PRN (17:50)
[2019-01-15] MEDS ORDERED: MAGNESIUM CITRATE 300 ML BOTTLE PO PRN (17:50)
[2019-01-15] MEDS ORDERED: MELATONIN 5 MG TABLETS PO PRN (17:50)
[2019-01-15] MEDS ORDERED: MAGNESIUM HYDROX 2400MG/30ML ORAL SUSPENSION 30 ML CUP PO PRN (17:50)
--- NOTE | 2019-01-15 18:05 | PN ---
Teaching Attending Note Name of Resident: Tati Michel ATTENDING PHYSICIAN STATEMENT I saw and evaluated the patient. I reviewed the resident's note and discussed the case with the resident. I agree with the resident's findings and plan as documented. SUBJECTIVE: pt transferred here from [facility] for continuation of Librium taper , started 01/12/19 . Pt reports h/o ETOH abuse x many years , currently 1 pint vodka daily , previous to admission pt was participating in in outpt tx , unable to achieve abstinence, presented to hospital 2/2 tremors and hallucinations . denies tobacco , denies illicits. 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 OBJECTIVE: wnwd , mild distress , mild UE tremors . ASSESSMENT AND PLAN: etoh dependence - continue Librium taper
[2019-01-15] MEDS: chlordiazePOXIDE HCL 10 MG CAPSULE PO PRN (18:55)
[2019-01-15] MEDS: cloNIDine HCL 0.1 MG TABLET PO PRN (18:55)
[2019-01-15] MEDS ORDERED: traZODone HCL 150 MG TABLET PO ONE (22:00)
[2019-01-15] MEDS: chlordiazePOXIDE 5 MG CAPSULE PO SCH (22:37)
[2019-01-15] MEDS: THIAMINE HCL 100 MG TABLET (FP) PO SCH (22:38)
[2019-01-15] MEDS: ROSUVASTATIN CA 10 MG TABLET (FP) PO SCH (23:18)
[2019-01-16] MEDS: chlordiazePOXIDE 5 MG CAPSULE PO SCH ×3 (05:43→22:50)
[2019-01-16] MEDS: cloNIDine HCL 0.1 MG TABLET PO PRN ×3 (07:12→20:36)
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
[2019-01-16] MEDS ORDERED: hydrOXYzine PAMOATE 25 MG CAPSULE (FP) PO PRN (09:27)
[2019-01-16] MEDS ORDERED: THIAMINE HCL 100 MG TABLET (FP) PO SCH (10:00)
[2019-01-16] MEDS: amLODIPine BESYLATE 10 MG TABLET (FP) PO SCH (10:29)
[2019-01-16] MEDS: FOLIC ACID 1 MG TABLET (FP) PO SCH (10:29)
[2019-01-16] MEDS: HYDROCHLOROTHIAZIDE 25 MG TABLET (FP) PO SCH (10:29)
[2019-01-16] MEDS: PRENATAL VITAMINS W/ FOLIC ACID TABLET (FP) PO SCH (10:29)
[2019-01-16] MEDS: LISINOPRIL 20 MG TABLET (FP) PO SCH (10:29)
[2019-01-16] MEDS ORDERED: hydrOXYzine HCL 25 MG TABLET (FP) PO PRN (10:33)
--- NOTE | 2019-01-16 12:51 | PN ---
S CIWA - CIWA Score Nausea/Vomitin-No Nausea/No Vomiting Muscle Tremors: 2 Anxiety: 3 Agitation: 1-Slight > Activity Paroxysmal Sweats: 3 Orientation: 0-Oriented Tacttile Disturbances: 0-None Auditory Disturbances: 0-None Visual Disturbances: 0-None Headache: 0-None Present CIWA-Ar Total Score: 9 BHS Progress Note (SOAP) Subjective: c/o sweats, anxiety, and interrupted sleep. Objective: 01/16/19 12:50 Vital Signs 01/16/19 01/16/19 01/16/19 06:00 07:00 07:05 Temperature 97.9 F Pulse Rate 72 75 80 Respiratory 18 18 18 Rate Blood Pressure 131/77 146/103 H 144/99 01/16/19 09:26 Temperature 97.9 F Pulse Rate 77 Respiratory 18 Rate Blood Pressure 110/83 Assessment: 01/16/19 12:51 AOX3, in no acute respiratory distress Full ROM, ambulating in the unit. Withdrawal symptoms. Plan: continue detox.
[2019-01-16] MEDS: MENTHOL/PHENOL 1 EACH UD MM PRN ×2 (13:22→22:53)
[2019-01-16] MEDS: chlordiazePOXIDE HCL 10 MG CAPSULE PO PRN (19:31)
[2019-01-16] MEDS: THIAMINE HCL 100 MG TABLET (FP) PO SCH (22:50)
[2019-01-16] MEDS: ARIPiprazole 5 MG TABLET (FP) PO SCH (22:50)
[2019-01-16] MEDS: traZODone HCL 50 MG TABLET (FP) PO SCH (22:50)
[2019-01-16] MEDS: ROSUVASTATIN CA 10 MG TABLET (FP) PO SCH (22:51)
[2019-01-17] MEDS: chlordiazePOXIDE HCL 10 MG CAPSULE PO SCH ×3 (06:04→22:47)
[2019-01-17] MEDS: HYDROCHLOROTHIAZIDE 25 MG TABLET (FP) PO SCH (10:31)
[2019-01-17] MEDS: LISINOPRIL 20 MG TABLET (FP) PO SCH (10:31)
[2019-01-17] MEDS: amLODIPine BESYLATE 10 MG TABLET (FP) PO SCH (10:31)
[2019-01-17] MEDS: FOLIC ACID 1 MG TABLET (FP) PO SCH (10:31)
[2019-01-17] MEDS: PRENATAL VITAMINS W/ FOLIC ACID TABLET (FP) PO SCH (10:31)
[2019-01-17] MEDS: cloNIDine HCL 0.1 MG TABLET PO PRN ×2 (10:32→22:49)
--- NOTE | 2019-01-17 17:24 | PN ---
S CIWA - CIWA Score Nausea/Vomitin-No Nausea/No Vomiting Muscle Tremors: None Anxiety: 2 Agitation: 2 Paroxysmal Sweats: 2 Orientation: 0-Oriented Tacttile Disturbances: 0-None Auditory Disturbances: 0-None Visual Disturbances: 0-None Headache: 0-None Present CIWA-Ar Total Score: 6 BHS Progress Note (SOAP) Subjective: Anxious, interrupted sleep. Patient requesting to be discharged today stating that she has a lot of things to do but her regimen not completed until tomorrow. She agreed to leave tomorrow at 0800. As per patient, she is feeling much better and the only problem was her b/p too high and that's the reason she was hospitalized prior to coming here at [facility] and that she follows up with her PCP. As per patient, she has appt with her PCP this Friday. Objective: 01/17/19 17:20 Last Vital Signs Temp Pulse Resp BP Pulse Ox 97.9 F 75 18 111/80 01/17/19 17:11 01/17/19 17:11 01/17/19 17:11 01/17/19 17:11 Lab results 01/13-01/15/19 reviewed Assessment: 01/17/19 17:21 Withdrawal symptoms Plan: Continue detox Encouraged PO water intake Scheduled for discharge tomorrow
[2019-01-17] MEDS: ROSUVASTATIN CA 10 MG TABLET (FP) PO SCH (22:46)
[2019-01-17] MEDS: ARIPiprazole 5 MG TABLET (FP) PO SCH (22:46)
[2019-01-17] MEDS: THIAMINE HCL 100 MG TABLET (FP) PO SCH (22:46)
[2019-01-17] MEDS: traZODone HCL 50 MG TABLET (FP) PO SCH (22:46)
[2019-01-18] MEDS ORDERED: chlordiazePOXIDE HCL 10 MG CAPSULE PO PRN
[2019-01-18] MEDS: MENTHOL/PHENOL 1 EACH UD MM PRN (04:37)
[2019-01-18] MEDS ORDERED: chlordiazePOXIDE HCL 10 MG CAPSULE PO ONE (05:00)
[2019-01-18 09:23] VITALS: BP 110/74; PULSE 75; TEMP 97.2
[2019-01-18] MEDS: LISINOPRIL 20 MG TABLET (FP) PO SCH (10:06)
[2019-01-18] MEDS: HYDROCHLOROTHIAZIDE 25 MG TABLET (FP) PO SCH (10:06)
[2019-01-18] MEDS: PRENATAL VITAMINS W/ FOLIC ACID TABLET (FP) PO SCH (10:06)
[2019-01-18] MEDS: amLODIPine BESYLATE 10 MG TABLET (FP) PO SCH (10:06)
[2019-01-18] MEDS: FOLIC ACID 1 MG TABLET (FP) PO SCH (10:07)
--- NOTE | 2019-01-18 10:07 | DS ---
[facility] Detox Discharge Summary Admission Date: 01/15/19 Discharge Date: 01/18/19 - History Present History: Alcohol Dependence - Physical Exam Results Vital Signs: Vital Signs Temperature 97.2 F L 01/18/19 09:22 Pulse Rate 75 01/18/19 09:22 Respiratory Rate 18 01/18/19 09:22 Blood Pressure 110/74 01/18/19 09:22 O2 Sat by Pulse Oximetry (%) Pertinent Admission Physical Exam Findings: pt arrived in withdrawal sx labs were taken at [facility] ed at time of admission. pt refer to that er visit for lab results - Treatment Hospital Course: Detox Protocol Followed, Detoxed Safely, Responded well, Discharged Condition Good, Rehab Referral Accepted - Medication Discharge Medications: Ambulatory Orders Aripiprazole 5 mg PO DAILY 01/13/19 Duloxetine HCl 60 mg PO DAILY 01/13/19 Folic Acid 1 mg PO DAILY 01/13/19 Trazodone HCl 150 mg PO HS 01/13/19 Rosuvastatin Calcium [Crestor] 10 mg PO DAILY 01/14/19 Amlodipine Besylate [Norvasc -] 10 mg PO DAILY tablet 01/15/19 Azilsartan Med/Chlorthalidone [Edarbyclor 40-12.5 mg Tablet] 1 each PO DAILY 06/24 Clonidine HCl 0.1 mg PO BID PRN 01/15/19 Doxycycline Hyclate 100 mg PO BID 01/15/19 Ergocalciferol [Vitamin D2] 50,000 unit PO Q7D@1000 01/15/19 Gabapentin [Neurontin] 300 mg PO TID 01/15/19 Hydrochlorothiazide [Hctz -] 25 mg PO DAILY tablet 01/15/19 Lisinopril [Prinivil] 20 mg PO DAILY tablet 01/15/19 Thiamine HCl [B-1] 100 mg PO DAILY 01/15/19 - Diagnosis (1) Alcohol dependence Current Visit: Yes Status: Chronic Qualifiers: Substance use status: uncomplicated Qualified Code(s): F10.20 - Alcohol dependence, uncomplicated (2) Alcohol-induced mood disorder Current Visit: Yes Status: Acute (3) Bipolar disorder Current Visit: Yes Status: Chronic (4) Depression Current Visit: Yes Status: Chronic (5) Hyperlipidemia Current Visit: Yes Status: Chronic (6) Hypertension Current Visit: Yes Status: Chronic (7) Hypokalemia Current Visit: No Status: Acute (8) Wernicke encephalopathy Current Visit: No Status: Acute (9) Bipolar disorder with psychotic features Current Visit: No Status: Suspected - AMA Did Patient Leave Against Medical Advice: No (pt declined rehab; going home)
[2019-01-22] MEDS ORDERED: ERGOCALCIFEROL (VIT D2) 50,000 UNIT (1.25 MG) CAPSULE PO SCH (10:00)
== END 2019-01-18 10:12 | disposition home or self-care (01) | DRG 775 ==
LOC: YASAS 14:16 → Y3N 18:13 → Y6N 18:14
PROVIDERS: ADMIT Surgery; ATTEND Surgery
PROC: HZ2ZZZZ Detoxification Services for Substance Abuse Treatment (ICD-10-PCS; principal; 2019-01-15)
DX: F10.230 Alcohol dependence with withdrawal, uncomplicated (principal); F10.24 Alcohol dependence with alcohol-induced mood disorder; F31.9 Bipolar disorder, unspecified; F32.9 Major depressive disorder, single episode, unspecified; I10 Essential (primary) hypertension; E87.6 Hypokalemia; E78.5 Hyperlipidemia, unspecified; E51.2 Wernicke's encephalopathy; A69.20 Lyme disease, unspecified
CPT/HCPCS: J0735

== ENCOUNTER 2019-05-17 18:03 | Inpatient (IN) | payer OTHER ==
[2019-05-17 18:33] VITALS: TEMP 97.8; BMI 24.7
--- NOTE | 2019-05-17 18:35 | PDOC ---
Rapid Medical Evaluation Time Seen by Provider: 05/17/19 18:30 Medical Evaluation: Allergies Allergy/AdvReac Type Severity Reaction Status Date / Time No Known Allergies Allergy Verified 01/15/19 15:20 05/17/19 18:30 Pt with pmh of alcoholism and HTN presents for evaluation of her blood pressure. Family member was concerned because she has been drinking for 4-5 days straight. Last drink (vodka) was 2 hours ago. Reporting L rib pain (might have fallen). Pt also reports headaches and visual changes. Exam: TTP of the L ribs, no gross neuro deficits. Orders: Labs, EKG, Ribs series. Pt to proceed to the ED for evaluation Discharge Disposition - Diagnosis Alcohol dependence, Headache, Rib pain on left side - Referrals - Patient Instructions - Post Discharge Activity
--- NOTE | 2019-05-17 19:20 | PDOC ---
Attending Attestation - Resident Resident Name: Carri Frankel - ED Attending Attestation I have performed the following: I have examined & evaluated the patient, The case was reviewed & discussed with the resident, I agree w/resident's findings & plan - HPI HPI: 05/17/19 22:45 see resident hpi - Physicial Exam PE: 05/17/19 22:45 agree with resident exam - Medical Decision Making 05/17/19 22:45 53-year-old female requesting evaluation for alcohol dependence with complaints of left rib pain likely secondary to fall Plan for CT scan of the head cervical spine chest abdomen and pelvis Patient's troponin is mildly elevated Will admit to medical service for serial enzymes, and pending withdrawal pending CT scan results
[2019-05-17] MEDS ORDERED: THIAMINE HCL 200 MG/2 ML VIAL IVPB ONE (20:12)
--- NOTE | 2019-05-17 20:12 | PDOC ---
History of Present Illness - General Chief Complaint: Alcohol intoxication Stated Complaint: HIGH BLOOD PRESSURE Time Seen by Provider: 05/17/19 18:30 History Source: Patient Exam Limitations: No Limitations - History of Present Illness Initial Comments: Pt is a 53 yo F, with PMH of polysubstance abuse (recent alcohol and prior benzo use) and HTN, who is presenting with alcohol intoxication after recent falls. Pt is accompanied by her , who states pt has not been eating or drinking other than alcohol, has not been taking her HTN medication, and "maybe has fallen recent". Pt states she "maybe fell on Friday" but does not remember how it happened. She currently complains of pain under her L ribs. Pt has had Lyme disease (January, recent negative titers) and L eye infection which has improved "with drops". Pt denies any fevers/chills, headache, vision changes , syncope, chest pain, palpitations, SOB, nausea/vomiting, abdominal pain, urinary symptoms, diarrhea/constipation, or leg swelling. Allergies: NKDA PCP: Dr. Deutsch Social: Pt denies any cigarette or drug use. Drinks 1-2 pints vodka/day at least. Last drink 3 hours ago. Denies withdrawal at this time. Pt denies any recent travel or sick contacts. Surgical: no relevant history. Family: Father - alcohol abuse, CVA in 70s. 05/17/19 20:06 Past History - Travel Traveled outside of the country in the last 30 days: No Close contact w/someone who was outside of country & ill: No - Past Medical History Allergies/Adverse Reactions: Allergies Allergy/AdvReac Type Severity Reaction Status Date / Time No Known Allergies Allergy Verified 05/17/19 18:33 Home Medications: Ambulatory Orders Aripiprazole 5 mg PO DAILY 01/13/19 Duloxetine HCl 60 mg PO DAILY 01/13/19 Folic Acid 1 mg PO DAILY 01/13/19 Trazodone HCl 150 mg PO HS 01/13/19 Rosuvastatin Calcium [Crestor] 10 mg PO DAILY 01/14/19 Amlodipine Besylate [Norvasc -] 10 mg PO DAILY tablet 01/15/19 Azilsartan Med/Chlorthalidone [Edarbyclor 40-12.5 mg Tablet] 1 each PO DAILY 06/24 Clonidine HCl 0.1 mg PO BID PRN 01/15/19 Doxycycline Hyclate 100 mg PO BID 01/15/19 Ergocalciferol [Vitamin D2] 50,000 unit PO Q7D@1000 01/15/19 Gabapentin [Neurontin] 300 mg PO TID 01/15/19 Hydrochlorothiazide [Hctz -] 25 mg PO DAILY tablet 01/15/19 Lisinopril [Prinivil] 20 mg PO DAILY tablet 01/15/19 Thiamine HCl [B-1] 100 mg PO DAILY 01/15/19 Anemia: No Asthma: No Cancer: No Cardiac Disorders: No CVA: No COPD: No CHF: No Dementia: No Diabetes: No GI Disorders: No Disorders: No HTN: Yes Hypercholesterolemia: Yes Kidney Stones: No Liver Disease: No Psychiatric Problems: Yes (Alcohol abuse) Seizures: No Thyroid Disease: No - Surgical History Abdominal Surgery: No Appendectomy: No Cardiac Surgery: No Cholecystectomy: No Lung Surgery: No Neurologic Surgery: No Orthopedic Surgery: No - Reproductive History PID: No - Psycho Social/Smoking Cessation Hx Smoking History: Never smoked Have you smoked in the past 12 months: No Hx Alcohol Use: Yes Drug/Substance Use Hx: No Substance Use Type: Alcohol Hx Substance Use Treatment: Yes ([facility]) Review of Systems - Review of Systems Able to Perform ROS?: Yes Is the patient limited Maltese proficient: No Constitutional: Yes: Loss of Appetite, Weight Stable. No: Chills, Fever, Malaise, Weakness HEENTM: No: Eye Pain, Recent change in vision, Double Vision, Nose Congestion, Nose Bleeding, Throat Pain, Throat Swelling, Difficulty Swallowing Respiratory: No: Cough, Orthopnea, Shortness of Breath Cardiac (ROS): No: Chest Pain, Edema, Irregular Heart Rate, Lightheadedness, Palpitations, Syncope, Chest Tightness ABD/GI: Yes: Poor Appetite, Poor Fluid Intake. No: Constipated, Diarrhea, Nausea, Vomiting : No: Burning, Dysuria, Frequency, Flank Pain, Pain, Urgency Musculoskeletal: Yes: Muscle Pain (Pain under L ribs after fall). No: Back Pain , Muscle Weakness, Neck Pain Integumentary: No: Bruising, Rash Neurological: No: Headache, Numbness, Seizure, Weakness, Unsteady Gait, Dizziness Psychiatric: No: Sleep Pattern Change, Change in Appetite Endocrine: No: Increased Urine, Change in Weight Hematologic/Lymphatic: No: Anemia, Blood Clots, Easy Bleeding, Easy Bruising All Other Systems: Reviewed and Negative *Physical Exam - Vital Signs Last Vital Signs Temp Pulse Resp BP Pulse Ox 97.8 F 84 14 139/94 99 05/17/19 18:30 05/17/19 18:30 05/17/19 18:30 05/17/19 18:30 05/17/19 18:30 - Physical Exam Comments: Vitals stable, pt afebrile. Pt in NAD, but appears anxious, smells heavily of alcohol with slurred speech. Normal body habitus. Pt alert and oriented x3. Answers questions appropriately, although poor memory of recent events. 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 No midline spinal tenderness, step-offs, or crepitus. Head normocephalic, atraumatic. Eyes PERRLA, EOMI. No apparent nystagmus. Oropharynx without erythema or exudates, no LAD b/l. No nasal congestion. Hearing intact. Clear heart sounds, S1/S2, no JVD, b/l pedal edema, or heart murmur. Reproducible chest wall TTP over L lower rib cage. Clear lung sounds, no respiratory distress, wheezes, crackles, or accessory muscle use. Periumbilical and suprapubic TTP, with no rebound, no guarding. Abdomen soft, non-distended, and with normoactive bowel sounds. Skin without jaundice or rash. 05/17/19 20:22 05/17/19 20:29 ED Treatment Course - LABORATORY CBC & Chemistry Diagram: 05/17/19 20:16 05/17/19 20:16 - RADIOLOGY Radiology Studies Ordered: Category Date Time Status ABDOMEN CT WITHOUT CONTRAST [CT] Stat CT Scan 05/17/19 19:[address] W/O CONTR [CT] Stat CT Scan 05/17/19 19:[address] WITHOUT CONTRAST [CT] Stat CT Scan 05/17/19 20:[address] WITHOUT CONTRAST [CT] Stat CT Scan 05/17/19 19:59 Ordered Medical Decision Making - Medical Decision Making Pt was seen at bedside, also will be seen by attending Dr. Toro. Pt presenting with alcohol intoxication, at this time does not wish for detox, but has pain after potential falls. Will evaluate with labs, ECG, breaux-CT scan for trauma. Provided 1 L IV NS and thiamine for improvement of hydration and alcohol detox. Will continue to reassess pt and monitor for symptomatic improvement. ECG: NSR, intervals WNL (HR 76, TX 126, QRS 98, QTc 463). No TWIs or significant ST segment changes. No significant changes from prior ECG (01/13/2019 ). 05/17/19 20:37 05/17/19 20:54 CT head without acute pathology CBC generally WNL CMP: elevated CK, trop 0.10 with no EKG findings, likely rhabdo Spoke with cardiology (Dr. Rodriguez) who agrees with plan for IVF hydration, likely rhabdo and not cardiac in etiology. Providing 1 mg IV ativan for withdrawal. UA positive for LE, bacteria, sending urine culture, and providing IV rocephin Pending CT reads. 05/17/19 22:54 CT head with no acute pathology. CT chest showed old rib fractures on the L which pt is aware of. CT abd/pelvis did not include enough of pelvis, will obtain CT abd/pelvis with IV contrast, renal function ok to give contrast. Paged hospitalist team for admission. 05/18/2019 23:30 Provided 1 mg IV ativan (2 mg total) and 1 g ofirmev. Will repeat troponin. Repeat ECG with prolonged QT (QTc 490), no ST segment changes. 05/18/19 00:22 Pt accepted to hospitalist team (Dr. Lucas). 05/18/19 00:38 Discharge - Discharge Information Problems reviewed: Yes Clinical Impression/Diagnosis: Rib pain on left side, Elevated troponin Alcohol dependence Qualifiers: Substance use status: unspecified alcohol-induced disorder Qualified Code(s): F10.29 - Alcohol dependence with unspecified alcohol-induced disorder Rhabdomyolysis Qualifiers: Rhabdomyolysis type: non-traumatic Qualified Code(s): M62.82 - Rhabdomyolysis Condition: Stable - Follow up/Referral Referrals: Ari Deutsch [Primary Care Provider] - - Patient Discharge Instructions - Post Discharge Activity S CIWA - CIWA Score Nausea/Vomitin-No Nausea/No Vomiting Muscle Tremors: None Anxiety: 4-Mod. Anxious/Guarded Agitation: 0-Normal Activity Paroxysmal Sweats: No Perspiration Orientation: 1-Uncertain about Date Tacttile Disturbances: 0-None Auditory Disturbances: 0-None Visual Disturbances: 0-None Headache: 0-None Present CIWA-Ar Total Score: 5
[2019-05-17] MEDS ORDERED: SODIUM CHLORIDE 1,000 ML IV STA (20:13)
[2019-05-17] MEDS ORDERED: THIAMINE HCL 200 MG/2 ML VIAL ONE (20:24)
[2019-05-17 20:36] LABS: BASO % 0.7 % (0-2.0); EOS % 0.2 % (0-4.5); HEMATOCRIT 42.8 % (32.4-45.2); HEMOGLOBIN 14.3 GM/dL (10.7-15.3); LYMPH % 45.7 % (8-40); MCH 30.1 pg (25.7-33.7); MCHC 33.4 g/dl (32.0-36.0); MEAN CELL VOLUME 90.3 fl (80-96); MEAN PLT VOLUME 8.7 fl (7.5-11.1); MONO % 4.5 % (3.8-10.2); NEUT % 48.9 % (42.8-82.8); PLATELET COUNT 375 K/MM3 (134-434); RBC 4.74 M/mm3 (3.60-5.2); RDW 15.9 % (11.6-15.6); WHITE BLOOD COUNT 11.4 K/mm3 (4.0-10.0)
[2019-05-17 20:41] LABS: INR 1.02 (0.83-1.09)
[2019-05-17 20:46] LABS: EPI CELLS 15.6 /HPF (0-5/HPF); HYALINE CASTS 3 /lpf (0-8); PH,URINE 6.5 (5.0-8.0); URINE APPEARANCE CLOUDY; URINE BACTERIA 264.5 /hpf (NEGATIVE); URINE BILIRUBIN NEGATIVE (NEGATIVE); URINE COLOR YELLOW; URINE GLUCOSE (UA) NEGATIVE (NEGATIVE); URINE KETONE TRACE (NEGATIVE); URINE LEUK ESTERASE TRACE (NEGATIVE); URINE NITRITE NEGATIVE (NEGATIVE); URINE PROTEIN TRACE (NEGATIVE); URINE WBC 2 /hpf (0-5)
[2019-05-17 20:58] LABS: ALBUMIN 4.2 g/dl (3.4-5.0); BILIRUBIN,TOTAL 0.3 mg/dL (0.2-1); CALCIUM 9.1 mg/dL (8.5-10.1); CREATININE 0.8 mg/dL (0.55-1.3); POTASSIUM 3.7 mmol/L (3.5-5.1); TOT PROT 7.7 g/dl (6.4-8.2)
[2019-05-17] MEDS ORDERED: CEFTRIAXONE 1,000 MG in DEXTROSE 5%-WATER - 50 ML IVPB ONE (21:03)
[2019-05-17 21:36] LABS: URINE RBC 0 /hpf (0-4)
[2019-05-17 21:37] LABS: YEAST MODERATE (NEGATIVE)
[2019-05-17] MEDS ORDERED: ASPIRIN 325 MG TABLET PO ONE (21:48)
[2019-05-17] MEDS ORDERED: ASPIRIN 81 MG CHEWABLE TABLETS ONE (21:57)
[2019-05-17] MEDS ORDERED: CEFTRIAXONE 1 GM/50 ML BAG ONE (21:57)
[2019-05-17] MEDS ORDERED: LORazepam 2 MG/ML SDV VIAL ONE (22:35)
[2019-05-18] MEDS ORDERED: ACETAMINOPHEN 1000 MG/100 ML VIAL (NON FORMULARY) IVPB ONE (00:21)
[2019-05-18] MEDS ORDERED: LORazepam 2 MG/ML SDV VIAL ONE (00:22)
[2019-05-18] MEDS ORDERED: SODIUM CHLORIDE 1,000 ML IV SCH ×2 (00:45→12:29)
--- NOTE | 2019-05-18 00:50 | PN ---
Teaching Attending Note Name of Resident: Corrine Ho ATTENDING PHYSICIAN STATEMENT I saw and evaluated the patient. I reviewed the resident's note and discussed the case with the resident. I agree with the resident's findings and plan as documented. SUBJECTIVE: Patient is a 53 year old woman with PMH of Polysubstance abuse (recent alcohol and prior benzo use) and HTN, who is presenting with alcohol intoxication after recent falls. Patient is accompanied by her , who states she has not been eating or drinking other than alcohol and has not been taking her HTN medication, and "maybe has fallen recent". Patient states she "maybe fell on Friday" but does not remember how it happened. She currently complains of pain under her left ribs. Patient has had Lyme disease (January, recent negative titers) and left eye infection which has improved "with drops". She denies fevers, chills, headache, vision changes, chest pain, palpitations, SOB, nausea , vomiting, abdominal pain, urinary symptoms, diarrhea, constipation, or leg swelling. Denies any cigarette or illicit drug use. Drinks 1-2 pints vodka/day at least. Had last drink 3 hours prior to arrival. Denies any recent travel or sick contacts. Has FH of alcohol abuse or CVA. OBJECTIVE: Alert Vital Signs Period Temp Pulse Resp BP Sys/Smith Pulse Ox Last 24 Hr 97.8 F 78-84 14-17 139-143/94-96 99-100 HEENT: No Jaundice, eye redness or discharge, PERRLA, EOMI. Normocephalic, atraumatic. External ears are normal and hearing is grossly intact. No nasal discharge. Neck: Supple, nontender. No palpable adenopathy or thyromegaly. No JVD Chest: Good effort. Clear to auscultation and percussion. Heart: Regular. No S3, rub or murmur Abdomen: Not distended, soft, nontender and no HSM. No rebound or guarding. Normal bowel sounds. Ext: Peripheral pulses intact. No leg edema. Skin: Warm and dry. No petechiae, rash or ecchymosis. Neuro: Alert. Oriented x3. No tremors or asterexis. CN 2-12 grossly intact. Sensation grossly intact in all four extremities and DTR are symmetric. Psych: Appropriate mood and affect. Good insight. Current Medications Generic Name Dose Route Start Last Admin Trade Name Talya PRN Reason Stop Dose Admin Sodium Chloride 1,000 mls @ 125 mls/hr 05/18/19 00:45 05/18/19 01:20 Normal Saline - IV 125 mls/hr ASDIR RANDY Administration Home Medications Medication Instructions Recorded Aripiprazole 5 mg PO DAILY 01/13/19 Duloxetine HCl 60 mg PO DAILY 01/13/19 Folic Acid 1 mg PO DAILY 01/13/19 Trazodone HCl 150 mg PO HS 01/13/19 Rosuvastatin Calcium [Crestor] 10 mg PO DAILY 01/14/19 Amlodipine Besylate [Norvasc -] 10 mg PO DAILY tablet 01/15/19 Azilsartan Med/Chlorthalidone 1 each PO DAILY 01/15/19 [Edarbyclor 40-12.5 mg Tablet] Clonidine HCl 0.1 mg PO BID PRN 01/15/19 Doxycycline Hyclate 100 mg PO BID 01/15/19 Ergocalciferol [Vitamin D2] 50,000 unit PO Q7D@1000 01/15/19 Gabapentin [Neurontin] 300 mg PO TID 01/15/19 Hydrochlorothiazide [Hctz -] 25 mg PO DAILY tablet 01/15/19 Lisinopril [Prinivil] 20 mg PO DAILY tablet 01/15/19 Thiamine HCl [B-1] 100 mg PO DAILY 01/15/19 Abnormal Lab Results 05/17/19 05/17/19 05/17/19 20:16 20:16 20:16 WBC 11.4 H RDW 15.9 H D Lymphocytes % 45.7 H D Creatine Kinase 218 H Troponin I 0.10 H Urine Ketones Alcohol, Quantitative 324.7 H 05/17/19 05/18/19 20:30 00:25 WBC RDW Lymphocytes % Creatine Kinase Troponin I 0.11 H Urine Ketones Trace H Alcohol, Quantitative ASSESSMENT AND PLAN: 1. Alcohol intoxication - Alcohol level is 324.7 and she also has rhabdomyolysis. Elevated troponin is likely due to demand ischemia - no ischemic changes on EKG - shows NSR with prolonged QTc. Will trend troponin and CKP. Get ECHO and consult cardiology. CT scan of head, c-spine, chest, abdomen/ pelvis didnot show any acute abnormality. Mild leukocytosis is likely due to stress - monitor closely for infection. Will get IV banana bag and then ringers lactate. Will implement [facility] alcohol withdrawal protocol and do neurochecks. Implement seizure, fall and aspiration precautions. Treat with thiamine and folic acid and monitor electrolytes (Ca,Mg,K,P). Counseled patient about abstaining from alcohol. Will consult title specialist and refer to alcohol detox upon discharge. Will continue comprehensive care for all of patients comorbid conditions. 2. Hypertension - Restart suitable outpatient antihypertensive drugs when clinically appropriate. 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 Nonpharmacologic measures to control hypertension like weight loss , salt restriction and exercise discussed. Importance of adherence to treatment regimen and attainment of normotension emphasized. 3. DVT prophylaxis - Lovenox 40 mg SQ q 24 hours. 4. Advance directives - Full code
[2019-05-18] MEDS ORDERED: ACETAMINOPHEN INJECTION 100 ML IVPB ONE (01:13)
[2019-05-18] MEDS ORDERED: FOLIC ACID INJECTION - 1 MG, THIAMINE HCL 100 MG, MULTIVIT INJECTION ADULT 10 ML in SOD... IVPB ONE (03:57)
[2019-05-18] MEDS ORDERED: chlordiazePOXIDE HCL 10 MG CAPSULE PO PRN (03:58)
[2019-05-18] MEDS ORDERED: chlordiazePOXIDE HCL 25 MG CAPSULE PO SCH (05:00)
[2019-05-18] MEDS ORDERED: chlordiazePOXIDE HCL 25 MG CAPSULE ONE ×2 (05:07→11:23)
--- NOTE | 2019-05-18 05:24 | HP ---
CHIEF COMPLAINT: alcohol intoxication PCP: Dr. Deutsch HISTORY OF PRESENT ILLNESS: Pt is a 53 y/o F w/ pmhx of HTN, HLD and carpal tunnel syndrome presenting to ED complaining of decrease appetitie and L rib pain which began 4 days ago, also found to be acutely intoxicated on admission. Pt reports her family has been worried because pt has not been eating anything or taking her medications for the past 4 days but has been drinking about 750mL of vodka a day. Also, pt reports that Friday she fell while in the shower but did not hit her head or lose consciousness. She has pain on the L side of her chest, around ribs 8-9 midclavicular line, and rates the pain as 8/10. She also gets diarrhea every time she drinks. Pt denies dizziness, DEMARCO, SOB, chest pain, abdominal pain, urinary changes, or numbness and tingling. Pt is using an eye drop Abx for a L eye infection which occurred after she was hit on the L eye by a ball. She saw an economic history teacher a week ago and was supposed to follow up this Friday, but she did not make it to the appointment. She cannot recall what kind of eye drops she is taking but states it is in a white bottle with a red top. Pt does she a psychologist for childhood trauma which is the reason she began drinking in her early 40s. She does go to outpatient detox and Alcoholic Anonymous meetings but has not been lately. ER course was notable for: (1) Ativan 2mg (2) CK 218, Trop 0.1 (3) Dr. 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 Residence: Lives with Fhx: Father: Stoke, DM; Mother: RA, Sciatica Allergies No Known Allergies Allergy (Verified 05/17/19 18:33) HOME MEDICATIONS: Home Medications Medication Instructions Recorded Aripiprazole 5 mg PO DAILY 01/13/19 Duloxetine HCl 60 mg PO DAILY 01/13/19 Folic Acid 1 mg PO DAILY 01/13/19 Trazodone HCl 150 mg PO HS 01/13/19 Rosuvastatin Calcium [Crestor] 10 mg PO DAILY 01/14/19 Amlodipine Besylate [Norvasc -] 10 mg PO DAILY tablet 01/15/19 Azilsartan Med/Chlorthalidone 1 each PO DAILY 01/15/19 [Edarbyclor 40-12.5 mg Tablet] Clonidine HCl 0.1 mg PO BID PRN 01/15/19 Doxycycline Hyclate 100 mg PO BID 01/15/19 Ergocalciferol [Vitamin D2] 50,000 unit PO Q7D@1000 01/15/19 Gabapentin [Neurontin] 300 mg PO TID 01/15/19 Hydrochlorothiazide [Hctz -] 25 mg PO DAILY tablet 01/15/19 Lisinopril [Prinivil] 20 mg PO DAILY tablet 01/15/19 Thiamine HCl [B-1] 100 mg PO DAILY 01/15/19 REVIEW OF SYSTEMS CONSTITUTIONAL: loss of appetite Absent: fever, chills, diaphoresis, generalized weakness, malaise, , weight change HEENT: Absent: rhinorrhea, nasal congestion, throat pain, throat swelling, difficulty swallowing, mouth swelling, ear pain, eye pain, visual changes CARDIOVASCULAR: Absent: chest pain, syncope, palpitations, irregular heart rate, lightheadedness , peripheral edema RESPIRATORY: Absent: cough, shortness of breath, dyspnea with exertion, orthopnea, wheezing, stridor, hemoptysis GASTROINTESTINAL: diarrhea, Absent: abdominal pain, abdominal distension, nausea, vomiting, constipation, melena, hematochezia GENITOURINARY: Absent: dysuria, frequency, urgency, hesitancy, hematuria, flank pain, genital pain MUSCULOSKELETAL: L rib pain Absent: myalgia, arthralgia, joint swelling, back pain, neck pain SKIN: Absent: rash, itching, pallor HEMATOLOGIC/IMMUNOLOGIC: Absent: easy bleeding, easy bruising, lymphadenopathy, frequent infections ENDOCRINE: Absent: unexplained weight gain, unexplained weight loss, heat intolerance, cold intolerance NEUROLOGIC: Absent: headache, focal weakness or paresthesias, dizziness, unsteady gait, seizure, mental status changes, bladder or bowel incontinence PSYCHIATRIC: Absent: anxiety, depression, suicidal or homicidal ideation, hallucinations. PHYSICAL EXAMINATION Vital Signs - 24 hr 05/17/19 05/17/19 05/18/19 18:30 18:55 04:31 Temperature 97.8 F Pulse Rate 84 Pulse Rate [ 78 67 Left Brachial] Respiratory 14 17 20 Rate Blood Pressure 139/94 Blood Pressure 143/96 142/93 [Left Arm] O2 Sat by Pulse 99 100 99 Oximetry (%) GENERAL: Awake, alert, and fully oriented, in no acute distress. CIWA 8 (1 for nausea, diaphoresis, agitation, itching 2 for tremor, and nervous/ anxious) HEAD: Normal with no signs of trauma. EYES: Pupils asymmetric L>R, round and reactive to light, extraocular movements intact, sclera anicteric, conjunctiva injected on L eye. No lid lag. Nystagmus EARS, NOSE, THROAT: Ears normal, nares patent, oropharynx clear without exudates. Dry mucous membranes, tongue fasiculations NECK: Normal range of motion, supple without lymphadenopathy, JVD, or masses. LUNGS: Breath sounds equal, clear to auscultation bilaterally. No wheezes, and no crackles. No accessory muscle use. HEART: Regular rate and rhythm, normal S1 and S2 without murmur, rub or gallop. ABDOMEN: Soft, TTP in LUQ, not distended, normoactive bowel sounds, no guarding , no rebound, no masses. MUSCULOSKELETAL: Normal range of motion at all joints. No bony deformities or tenderness. No CVA tenderness, but TTP on L ribs just below breast at mid- clavicular line UPPER EXTREMITIES: 2+ pulses, warm, well-perfused. No cyanosis. No clubbing. No peripheral edema. No asterixis, tremor in hands felt but not seen bilaterally. LOWER EXTREMITIES: 2+ pulses, warm, well-perfused. No calf tenderness. No peripheral edema. NEUROLOGICAL: Cranial nerves II-XII intact. Normal speech. No cerebellar signs (FNF/ HTS both nl) PSYCHIATRIC: Cooperative. Good eye contact. Appropriate mood and affect. SKIN: Warm, dry, normal turgor, no rashes or lesions noted, normal capillary refill. Laboratory Results - last 24 hr 05/17/19 05/17/19 05/17/19 20:16 20:16 20:16 WBC 11.4 H RBC 4.74 Hgb 14.3 Hct 42.8 D MCV 90.3 MCH 30.1 MCHC 33.4 RDW 15.9 H D Plt Count 375 D MPV 8.7 Absolute Neuts (auto) 5.6 Neutrophils % 48.9 Lymphocytes % 45.7 H D Monocytes % 4.5 Eosinophils % 0.2 D Basophils % 0.7 Nucleated RBC % 0 PT with INR INR Sodium Potassium Chloride Carbon Dioxide Anion Gap BUN Creatinine Est GFR (CKD-EPI)AfAm Est GFR (CKD-EPI)NonAf Random Glucose Calcium Total Bilirubin AST ALT Alkaline Phosphatase Creatine Kinase 218 H Creatine Kinase Index 0.7 CK-MB (CK-2) 1.7 Troponin I 0.10 H Total Protein Albumin Urine Color Urine Appearance Urine pH Ur Specific Helotes Urine Protein Urine Glucose (UA) Urine Ketones Urine Blood Urine Nitrite Urine Bilirubin Urine Urobilinogen Ur Leukocyte Esterase Urine WBC (Auto) Urine RBC (Auto) Urine Casts (Auto) U Epithel Cells (Auto) Urine Bacteria (Auto) Urine Yeast (Auto) Alcohol, Quantitative 324.7 H 05/17/19 05/17/19 05/17/19 20:16 20:16 20:30 WBC RBC Hgb Hct MCV MCH MCHC RDW Plt Count MPV Absolute Neuts (auto) Neutrophils % Lymphocytes % Monocytes % Eosinophils % Basophils % Nucleated RBC % PT with INR 12.00 INR 1.02 Sodium 142 Potassium 3.7 Chloride 103 Carbon Dioxide 29 Anion Gap 9 BUN 11.0 Creatinine 0.8 Est GFR (CKD-EPI)AfAm 96.19 Est GFR (CKD-EPI)NonAf 83.00 Random Glucose 86 Calcium 9.1 Total Bilirubin 0.3 AST 36 ALT 23 Alkaline Phosphatase 114 Creatine Kinase Creatine Kinase Index CK-MB (CK-2) Troponin I Total Protein 7.7 Albumin 4.2 Urine Color Yellow Urine Appearance Cloudy Urine pH 6.5 Ur Specific Helotes 1.015 Urine Protein Trace Urine Glucose (UA) Negative Urine Ketones Trace H Urine Blood Negative Urine Nitrite Negative Urine Bilirubin Negative Urine Urobilinogen 1.0 Ur Leukocyte Esterase Trace Urine WBC (Auto) 2 Urine RBC (Auto) 0 Urine Casts (Auto) 3 U Epithel Cells (Auto) 15.6 Urine Bacteria (Auto) 264.5 Urine Yeast (Auto) Moderate Alcohol, Quantitative 05/18/19 00:25 WBC RBC Hgb Hct MCV MCH MCHC RDW Plt Count MPV Absolute Neuts (auto) Neutrophils % Lymphocytes % Monocytes % Eosinophils % Basophils % Nucleated RBC % PT with INR INR Sodium Potassium Chloride Carbon Dioxide Anion Gap BUN Creatinine Est GFR (CKD-EPI)AfAm Est GFR (CKD-EPI)NonAf Random Glucose Calcium Total Bilirubin AST ALT Alkaline Phosphatase Creatine Kinase Creatine Kinase Index CK-MB (CK-2) Troponin I 0.11 H Total Protein Albumin Urine Color Urine Appearance Urine pH Ur Specific Helotes Urine Protein Urine Glucose (UA) Urine Ketones Urine Blood Urine Nitrite Urine Bilirubin Urine Urobilinogen Ur Leukocyte Esterase Urine WBC (Auto) Urine RBC (Auto) Urine Casts (Auto) U Epithel Cells (Auto) Urine Bacteria (Auto) Urine Yeast (Auto) Alcohol, Quantitative ASSESSMENT/PLAN: Pt is a 53 y/o F w/ pmhx of HTN, HLD and carpal tunnel syndrome presenting to ED complaining of decrease appetitie and L rib pain which began 4 days ago, also found to be acutely intoxicated on admission # Alcohol Intoxication Alcohol level is 324.7 and her labs also revealed a CK of 218 likely due to rhabdomyolysis. CT scan of head, c-spine, chest, abdomen/ pelvis didnot show any acute abnormality. Elevated troponin is likely 2/2 demand ischemia as there were no ischemic changes on EKG. - Cardiology, Dr. Park, consulted by ED. Appreciate recommendations> agrees pt likely has rhabdo and that trop is likely 2/2 demand rather than cardiac issue - trend troponin and CKP. - IV banana bag - NS @ 125cc/h - CIWA librium protocol - neurochecks - Implement seizure, fall and aspiration precautions. - PO thiamine, folic acid and MVT - monitor electrolytes (Ca,Mg,K,P). # Leukocytosis- mild and likely due to stress - monitor closely for signs infection including tachycardia, fever, hyper/ hypo tension. # HTN - confirm home meds and resume when clinically appropriate # FEN - NS@ 125cc/h - replete PRN - NPO until mentation improves, then Na controlled low fat diet # PPx DVT prophylaxis - Lovenox 40 mg SQ q 24 hours. # Dispo- admit to med-surg, full code Visit type - Emergency Visit Emergency Visit: Yes ED Registration Date: 05/18/19 Care time: The patient presented to the Emergency Department on the above date and was hospitalized for further evaluation of their emergent condition. - New Patient This patient is new to me today: Yes Date on this admission: 05/18/19 - Critical Care Critical Care patient: No ATTENDING PHYSICIAN STATEMENT I saw and evaluated the patient. I reviewed the resident's note and discussed the case with the resident. I agree with the resident's findings and plan as documented. SUBJECTIVE: OBJECTIVE: ASSESSMENT AND PLAN:
[2019-05-18 06:04] LABS: BASO % 0.7 % (0-2.0); EOS % 0.7 % (0-4.5); HEMATOCRIT 37.9 % (32.4-45.2); HEMOGLOBIN 12.9 GM/dL (10.7-15.3); LYMPH % 36.2 % (8-40); MCH 30.4 pg (25.7-33.7); MCHC 34.1 g/dl (32.0-36.0); MEAN CELL VOLUME 89.3 fl (80-96); MEAN PLT VOLUME 8.3 fl (7.5-11.1); MONO % 7.6 % (3.8-10.2); NEUT % 54.8 % (42.8-82.8); PLATELET COUNT 281 K/MM3 (134-434); RBC 4.24 M/mm3 (3.60-5.2); WHITE BLOOD COUNT 7.6 K/mm3 (4.0-10.0)
[2019-05-18 06:34] LABS: ALBUMIN 3.4 g/dl (3.4-5.0); BILIRUBIN,TOTAL 0.4 mg/dL (0.2-1); BLOOD UREA NITROGEN 9.4 mg/dL (7-18); CALCIUM 8.1 mg/dL (8.5-10.1); CREATININE 0.7 mg/dL (0.55-1.3); MAGNESIUM 1.8 mg/dL (1.8-2.4); PHOSPHOROUS 2.8 mg/dL (2.5-4.9); POTASSIUM 3.4 mmol/L (3.5-5.1); TOT PROT 6.4 g/dl (6.4-8.2)
[2019-05-18] MEDS ORDERED: POTASSIUM CHLORIDE TABS 20 MEQ TABLET.ER (FP) PO ONE ×2 (07:28→09:02)
[2019-05-18 07:35] VITALS: BP 159/105; PULSE 87
--- NOTE | 2019-05-18 09:49 | EKG ---
Test Reason : Blood Pressure : / mmHG Vent. Rate : 083 BPM Atrial Rate : 083 BPM P-R Int : 148 ms QRS Dur : 096 ms QT Int : 408 ms P-R-T Axes : 056 057 052 degrees QTc Int : 479 ms NORMAL SINUS RHYTHM NORMAL ECG WHEN COMPARED WITH ECG OF 17-MAY-2019 20:00, NO SIGNIFICANT CHANGE WAS FOUND Confirmed by MD JOCE, ALE ([id number]) on 05/18/2019 9:49:25 AM Referred By: Confirmed By:ALE HOBSON MD
--- NOTE | 2019-05-18 09:52 | EKG ---
Test Reason : Blood Pressure : / mmHG Vent. Rate : 076 BPM Atrial Rate : 076 BPM P-R Int : 126 ms QRS Dur : 098 ms QT Int : 412 ms P-R-T Axes : 033 040 042 degrees QTc Int : 463 ms NORMAL SINUS RHYTHM NORMAL ECG WHEN COMPARED WITH ECG OF 13-JAN-2019 17:49, T WAVE INVERSION NO LONGER EVIDENT IN ANTERIOR LEADS Confirmed by MD JOCE, ALE ([id number]) on 05/18/2019 9:52:26 AM Referred By: Confirmed By:ALE HOBSON MD
[2019-05-18] MEDS ORDERED: MULTIVITAMINS (DAILY MVI) TABLET (FP) PO SCH (10:00)
[2019-05-18] MEDS ORDERED: THIAMINE HCL 100 MG TABLET (FP) PO SCH (10:00)
[2019-05-18] MEDS ORDERED: FOLIC ACID 1 MG TABLET (FP) PO SCH (10:00)
[2019-05-18] MEDS ORDERED: ENOXAPARIN NA (PORCINE) 40 MG/0.4 ML DISP.SYRIN SQ SCH (10:00)
[2019-05-18] MEDS ORDERED: amLODIPine BESYLATE 10 MG TABLET (FP) PO SCH (10:00)
[2019-05-18] MEDS ORDERED: amLODIPine BESYLATE 5 MG TABLET (FP) ONE (11:23)
--- NOTE | 2019-05-18 11:56 | ECHO ---
Version: 1 Name: TRACY TAYLOR Exam: Adult Echocardiogram Study Date: 05/18/2019, 9:12 AM Age: 53 Years MMode/2D Measurements & Calculations IVSd: 0.91 cm LVIDs: 2.9 cm LVIDd: 4.9 cm LVPWd: 0.91 cm ACS: 1.68 cm Ao root diam: 2.8 cm LA dimension: 3.5 cm Doppler Measurements & Calculations MV E max agustin: 89.3 cm/sec Med E/e': 12.2 MV A max agustin: 97.1 cm/sec Med Peak E' Agustin: 7.3 cm/sec MV E/A: 0.92 Lat E/e': 11.2 Lat Peak E' Agustin: 8.0 cm/sec Ao max P.2 mmHg Ao V2 max: 143.3 cm/sec TR max agustin: 261.3 cm/sec TR max P.3 mmHg Left Ventricle The left ventricular size, thickness and function are normal. Ejection Fraction = 65-70%. The transm itral spectral Doppler flow pattern is suggestive of impaired LV relaxation. Right Ventricle The right ventricle is not well visualized. The right ventricular systolic function is grossly gail l. Atria Normal left and right atrial size and function. Mitral Valve There is moderate mitral annular calcification. There is trace mitral regurgitation. Tricuspid Valve The tricuspid valve is normal in structure and function. There was insufficient TR detected to calcu late RV systolic pressure. Aortic Valve The aortic valve is normal in structure and function. Pulmonic Valve The pulmonic valve is not well visualized. Great Vessels The aortic root is normal size. Pericardium/Pleura Trivial pericardial effusion not hemodynamically significant. Summary Statements The left ventricular size, thickness and function are normal. Ejection Fraction = 65-70%. The right ventricle is not well visualized. The right ventricular systolic function is grossly normal. There is moderate mitral annular calcification. MD Didi Latif05/18/2019, 11:56 AM Ordering Physician: JENNIFER LAM Performed By: Gema Holland
[2019-05-18] MEDS ORDERED: chlordiazePOXIDE 5 MG CAPSULE ONE (13:59)
--- NOTE | 2019-05-18 14:09 | CON.CARD ---
Consult Consult Specialty:: Cardiology Referred by:: Dr. Mcclellan Reason for Consultation:: Cardiac evaluation - History of Present Illness Chief Complaint: Chest pain History of Present Illness: Patient is a 53 year old female with underlying history of HTN, hypercholesterolemia and polysubstance abuse (ETOH and narcotic use) who presents with ETOH intoxication. She states drinking pint of Vodka. She complained of chest pain underneath her left rib and also noted a fall recently. She denies shortness of breath or palpitations. She denies paroxysmal nocturnal dyspnea or orthopnea. She denies fever or chills. She denies nausea, vomiting, diarrhea or abdominal pain. She denies headache or lightheadedness. Echocardiography was done. - History Source History Provided By: Patient, Family Member, Medical Record Limitations to Obtaining History: Clinical Condition - Past Medical History Cardio/Vascular: Yes: HTN, Hyperlipdemia ...LMP: 07/07/14 - Past Surgical History Additional Surgical History: Myomectomy - Alcohol/Substance Use Hx Alcohol Use: Yes History of Substance Use: reports: None - Smoking History Smoking history: Never smoked Have you smoked in the past 12 months: No Home Medications - Allergies Allergies/Adverse Reactions: Allergies Allergy/AdvReac Type Severity Reaction Status Date / Time No Known Allergies Allergy Verified 05/17/19 18:33 - Home Medications Home Medications: Ambulatory Orders Aripiprazole 5 mg PO DAILY 01/13/19 Duloxetine HCl 60 mg PO DAILY 01/13/19 Folic Acid 1 mg PO DAILY 01/13/19 Trazodone HCl 150 mg PO HS 01/13/19 Rosuvastatin Calcium [Crestor] 10 mg PO DAILY 01/14/19 Clonidine HCl 0.1 mg PO BID PRN 01/15/19 Ergocalciferol [Vitamin D2] 50,000 unit PO Q7D@1000 01/15/19 Thiamine HCl [B-1] 100 mg PO DAILY 01/15/19 Amlodipine Besylate [Norvasc -] 2.5 mg PO DAILY 05/18/19 Azilsartan Medoxomil [Edarbi] 40 mg DAILY 05/18/19 Cyanocobalamin [Vitamin B12 -] 1,000 mg DAILY 05/18/19 Disulfiram [Antabuse] 250 mg DAILY 05/18/19 Folic Acid - 1 mg PO DAILY tablet 05/18/19 Pantoprazole Sodium [Protonix] 40 mg PO DAILY #30 tablet. 05/18/19 Prazosin HCl [Minipress] 2 mg PO DAILY 05/18/19 Review of Systems - Review of Systems Constitutional: denies: Chills, Fever Cardiovascular: reports: Chest Pain. denies: Palpitations, Shortness of Breath Respiratory: denies: Cough, Hemoptysis, Orthopnea, PND, SOB, SOB on Exertion Gastrointestinal: denies: Abdominal Pain, Constipation, Diarrhea, Melena, Nausea , Rectal Bleeding, Vomiting Genitourinary: denies: Dysuria, Hematuria Neurological: denies: Dizziness, Headache, Seizure, Syncope Vital Signs: Vital Signs Temperature 97.8 F 05/17/19 18:30 Pulse Rate 87 05/18/19 07:34 Respiratory Rate 18 05/18/19 07:34 Blood Pressure 159/105 H 05/18/19 07:34 O2 Sat by Pulse Oximetry (%) 100 05/18/19 07:34 Eyes: Yes: PERRL HENT: Yes: Atraumatic Neck: Yes: Supple Respiratory: Yes: CTA Bilaterally Gastrointestinal: Yes: Normal Bowel Sounds, Soft. No: Tenderness Cardiovascular: Yes: Regular Rate and Rhythm JVD: No Carotid Bruit: No PMI: Non-Displaced Heart Sounds: Yes: S1, S2 Murmur: No: Systolic Murmur, Diastolic Murmur Edema: No - Other Data Labs, Other Data: CBC, BMP 05/18/19 05:30 05/18/19 05:30 INR, PTT INR 1.02 (0.83-1.09) 05/17/19 20:16 Troponin, BNP 05/17/19 05/18/19 05/18/19 20:16 00:25 05:30 Troponin I 0.10 H 0.11 H 0.12 H Normal sinus rhythm with normal ECG Echo: Report Reviewed Imaging - Results Cat Scan: Report Reviewed (Head, chest, abdomen, cervical spine CT unremarkable) EKG: Report Reviewed Problem List - Problems (1) Demand ischemia Code(s): I24.8 - OTHER FORMS OF ACUTE ISCHEMIC HEART DISEASE (2) Alcohol dependence Code(s): F10.20 - ALCOHOL DEPENDENCE, UNCOMPLICATED Qualifiers: Substance use status: unspecified alcohol-induced disorder Qualified Code(s ): F10.29 - Alcohol dependence with unspecified alcohol-induced disorder (3) Hyperlipidemia Code(s): E78.5 - HYPERLIPIDEMIA, UNSPECIFIED (4) Hypertension Code(s): I10 - ESSENTIAL (PRIMARY) HYPERTENSION Qualifiers: Hypertension type: essential hypertension Qualified Code(s): I10 - Essential (primary) hypertension (5) Atypical chest pain Code(s): R07.89 - OTHER CHEST PAIN Assessment/Plan 1. Atypical chest pain likely due to fall 2. Mildly elevated troponin likely demand ischemia 3. HTN 4. ETOH intoxication PLAN: 1. Will need to be enrolled in detox program. Medical therapy to prevent withdrawl 2. Echocardiography to assess LV/RV and valvular function (reviewed) 3. Continue Amlodipine and Clonidine for BP 4. Outpatient follow up Further plans are to follow Thierry Jensen MD
--- NOTE | 2019-05-18 14:11 | PN ---
Teaching Attending Note Name of Resident: Armida Craft ATTENDING PHYSICIAN STATEMENT I saw and evaluated the patient. I reviewed the resident's note and discussed the case with the resident. I agree with the resident's findings and plan as documented with exceptions below. SUBJECTIVE: Patient seen and examined. no chest pain or complaints, asking to eat. OBJECTIVE: Vital Signs Period Temp Pulse Resp BP Sys/Smith Pulse Ox Last 24 Hr 97.8 F 67-87 14-20 139-159/93-105 99-100 Intake & Output 05/15/19 05/16/19 05/17/19 05/18/19 23:59 23:59 23:59 23:59 Intake Total 1000 Balance 1000 Weight 140 lb General: ambulating in ED, no acute concerns Abdomen:Soft, Obese, NT throughout, pos bowel sounds Neck: soft, supple CVS:S1S2 regular Chest: CTAB, no rales or wheezing Extremities: mild fine tremors Home Medications Medication Instructions Recorded Aripiprazole 5 mg PO DAILY 01/13/19 Duloxetine HCl 60 mg PO DAILY 01/13/19 Folic Acid 1 mg PO DAILY 01/13/19 Trazodone HCl 150 mg PO HS 01/13/19 Rosuvastatin Calcium [Crestor] 10 mg PO DAILY 01/14/19 Azilsartan Med/Chlorthalidone 1 each PO DAILY 01/15/19 [Edarbyclor 40-12.5 mg Tablet] Clonidine HCl 0.1 mg PO BID PRN 01/15/19 Doxycycline Hyclate 100 mg PO BID 01/15/19 Ergocalciferol [Vitamin D2] 50,000 unit PO Q7D@1000 01/15/19 Gabapentin [Neurontin] 300 mg PO TID 01/15/19 Hydrochlorothiazide [Hctz -] 25 mg PO DAILY tablet 01/15/19 Lisinopril [Prinivil] 20 mg PO DAILY tablet 01/15/19 Thiamine HCl [B-1] 100 mg PO DAILY 01/15/19 Amlodipine Besylate [Norvasc -] 2.5 mg PO DAILY 05/18/19 Azilsartan Medoxomil [Edarbi] 40 mg DAILY 05/18/19 Cyanocobalamin [Vitamin B12 -] 1,000 mg DAILY 05/18/19 Disulfiram [Antabuse] 250 mg DAILY 05/18/19 Prazosin HCl [Minipress] 2 mg PO DAILY 05/18/19 Active Medications Amlodipine Besylate (Norvasc -) 10 mg PO DAILY [facility] Last Admin: 05/18/19 11:34 Dose: 10 mg Chlordiazepoxide HCl (Librium -) 10 mg PO Q8H PRN PRN Reason: Signs/symptoms of Withdrawal Stop: 05/19/19 23:59 Last Admin: 05/18/19 14:03 Dose: 10 mg Enoxaparin Sodium (Lovenox -) 40 mg SQ DAILY [facility] Last Admin: 05/18/19 11:34 Dose: 40 mg Folic Acid (Folic Acid -) 1 mg PO DAILY [facility] Last Admin: 05/18/19 11:34 Dose: 1 mg Sodium Chloride (Normal Saline -) 1,000 mls @ 50 mls/hr IV ASDIR [facility] Multivitamins/Minerals/Vitamin C (Tab-A-Vit -) 1 tab PO DAILY [facility] Last Admin: 05/18/19 11:34 Dose: 1 tab Thiamine HCl (Vitamin B1 -) 100 mg PO DAILY [facility] Last Admin: 05/18/19 11:34 Dose: 100 mg Laboratory Results - last 24 hr 05/17/19 05/17/19 05/17/19 20:16 20:16 20:16 WBC 11.4 H RBC 4.74 Hgb 14.3 Hct 42.8 D MCV 90.3 MCH 30.1 MCHC 33.4 RDW 15.9 H D Plt Count 375 D MPV 8.7 Absolute Neuts (auto) 5.6 Neutrophils % 48.9 Lymphocytes % 45.7 H D Monocytes % 4.5 Eosinophils % 0.2 D Basophils % 0.7 Nucleated RBC % 0 PT with INR INR Sodium Potassium Chloride Carbon Dioxide Anion Gap BUN Creatinine Est GFR (CKD-EPI)AfAm Est GFR (CKD-EPI)NonAf Random Glucose Calcium Phosphorus Magnesium Total Bilirubin AST ALT Alkaline Phosphatase Creatine Kinase 218 H Creatine Kinase Index 0.7 CK-MB (CK-2) 1.7 Troponin I 0.10 H Total Protein Albumin Urine Color Urine Appearance Urine pH Ur Specific [place] Urine Protein Urine Glucose (UA) Urine Ketones Urine Blood Urine Nitrite Urine Bilirubin Urine Urobilinogen Ur Leukocyte Esterase Urine WBC (Auto) Urine RBC (Auto) Urine Casts (Auto) U Epithel Cells (Auto) Urine Bacteria (Auto) Urine Yeast (Auto) Alcohol, Quantitative 324.7 H 05/17/19 05/17/19 05/17/19 20:16 20:16 20:30 WBC RBC Hgb Hct MCV MCH MCHC RDW Plt Count MPV Absolute Neuts (auto) Neutrophils % Lymphocytes % Monocytes % Eosinophils % Basophils % Nucleated RBC % PT with INR 12.00 INR 1.02 Sodium 142 Potassium 3.7 Chloride 103 Carbon Dioxide 29 Anion Gap 9 BUN 11.0 Creatinine 0.8 Est GFR (CKD-EPI)AfAm 96.19 Est GFR (CKD-EPI)NonAf 83.00 Random Glucose 86 Calcium 9.1 Phosphorus Magnesium Total Bilirubin 0.3 AST 36 ALT 23 Alkaline Phosphatase 114 Creatine Kinase Creatine Kinase Index CK-MB (CK-2) Troponin I Total Protein 7.7 Albumin 4.2 Urine Color Yellow Urine Appearance Cloudy Urine pH 6.5 Ur Specific [place] 1.015 Urine Protein Trace Urine Glucose (UA) Negative Urine Ketones Trace H Urine Blood Negative Urine Nitrite Negative Urine Bilirubin Negative Urine Urobilinogen 1.0 Ur Leukocyte Esterase Trace Urine WBC (Auto) 2 Urine RBC (Auto) 0 Urine Casts (Auto) 3 U Epithel Cells (Auto) 15.6 Urine Bacteria (Auto) 264.5 Urine Yeast (Auto) Moderate Alcohol, Quantitative 05/18/19 05/18/19 05/18/19 00:25 05:30 05:30 WBC 7.6 RBC 4.24 Hgb 12.9 Hct 37.9 MCV 89.3 MCH 30.4 MCHC 34.1 RDW 16.0 H Plt Count 281 D MPV 8.3 Absolute Neuts (auto) 4.2 Neutrophils % 54.8 Lymphocytes % 36.2 D Monocytes % 7.6 Eosinophils % 0.7 D Basophils % 0.7 Nucleated RBC % 0 PT with INR INR Sodium 140 Potassium 3.4 L Chloride 106 Carbon Dioxide 26 Anion Gap 8 BUN 9.4 Creatinine 0.7 Est GFR (CKD-EPI)AfAm 113.05 Est GFR (CKD-EPI)NonAf 97.54 Random Glucose 76 Calcium 8.1 L Phosphorus 2.8 Magnesium 1.8 Total Bilirubin 0.4 AST 26 ALT 19 Alkaline Phosphatase 98 Creatine Kinase 193 H Creatine Kinase Index 0.9 CK-MB (CK-2) 1.9 Troponin I 0.11 H 0.12 H Total Protein 6.4 Albumin 3.4 Urine Color Urine Appearance Urine pH Ur Specific [place] Urine Protein Urine Glucose (UA) Urine Ketones Urine Blood Urine Nitrite Urine Bilirubin Urine Urobilinogen Ur Leukocyte Esterase Urine WBC (Auto) Urine RBC (Auto) Urine Casts (Auto) U Epithel Cells (Auto) Urine Bacteria (Auto) Urine Yeast (Auto) Alcohol, Quantitative 2D echo results reviewed ASSESSMENT AND PLAN: 53 yof with PMhx of HTN, HLD, ETOH abuse, Prior reported benzo abuse, carpal tunnel syndrome admitted with ETOH intoxication, dehydration and mild trop elevation -ETOH abuse/dependence -Uncontrolled HTN, suspect from non compliance (patient reports note taking her BP meds last few days) -Elevated Troponin, suspect from rhabdomyolysis +/- demand from above -Hypokalemia -Dehydration -HLD -Carpal tunnel syndrome Plan: Tn flat. 2D echo noted. Case discussed with Dr. Polanco on admission suspect from rhabdo+/- demand No symptoms or EKG changes. Explained to patient and to consider inpatient detox but patient declines inpatient detox, wants to follow up with her outpatient rehab. No active withdrawal symptoms currently. reconcile home BP meds and resume. Compliance counseling provided. replete K Dispo d/c home today with outpatient ETOH rehab (per patient wishes) pending official cardiology recs. Discussed with patient and at bedside.
--- NOTE | 2019-05-18 15:54 | DS ---
Physical Exam: SUBJECTIVE: Patient seen and examined. No acute events overnight. Pt complains of mild tremors and anxiety but denies any hallucinations, confusion, nausea, vomiting, agitation. OBJECTIVE: Vital Signs Period Temp Pulse Resp BP Sys/Smith Pulse Ox Last 24 Hr 97.8 F 67-87 14-20 139-159/93-105 99-100 PHYSICAL EXAM GENERAL: The patient is awake, alert, and fully oriented, in no acute distress. HEAD: Normal with no signs of trauma. EYES: Asymmetric pupils L>R. Nystagmus horizotally. Extraocular movements intact , sclera anicteric, conjunctiva clear. ENT: Ears normal, nares patent, oropharynx clear without exudates, moist mucous membranes. NECK: Trachea midline, full range of motion, supple. LUNGS: Breath sounds equal, clear to auscultation bilaterally, no wheezes, no crackles, no accessory muscle use. Tenderness on L chest wall at midclavicular line. HEART: Regular rate and rhythm, S1, S2 without murmur, rub or gallop. ABDOMEN: Soft, TTP in LUQ, nondistended, normoactive bowel sounds, no guarding, no rebound, no hepatosplenomegaly, no masses. EXTREMITIES: 2+ pulses, warm, well-perfused, no edema. NEUROLOGICAL: Cranial nerves II through XII grossly intact. Normal speech, gait not observed. No asterixis. Fine tremors BL. No cerebellar signs. PSYCH: Normal mood, normal affect. SKIN: Warm, dry, normal turgor, no rashes or lesions noted. LABS Laboratory Results - last 24 hr CBC, BMP 05/18/19 05:30 05/18/19 05:30 HOSPITAL COURSE: Date of Admission:05/18/19 Ms. Rodriguez is a 53 y/o F w/ pmhx of HTN, HLD and carpal tunnel syndrome who presented to ED complaining of decrease appetite and L rib pain which began 4 days ago s/p fall, found to be acutely intoxicated on admission. Pt was given IV banana bag, IV fluids, po thiamine and folic acid and monitored for withdrawal symptoms with Librium prn. She had leukocytosis on admission likely 2 /2 stress. No tachycardia or fevers, repeat WBC normalized. Pt has elevated, but flat troponin ~0.11. Cardio consulted, she received an echo that was essentially normal in size and function. Troponinemia likely 2/2 rhabdo and demand s/p fall. [place] CT for fall did not show any acute pathology other than healed fracture in L ribs and possible gastroenteritis. She will be discharged with protonix 40mg daily and a GI outpatient follow up. Encouraged pt to consider inpatient detox but patient denies and wants to be discahrged home to follow up with outpatient rehab. Her vitals are stable and she is clinically stable to be discharged home. Date of Discharge: 05/18/19 Minutes to complete discharge: 45 Discharge Summary Problems reviewed: Yes Reason For Visit: ALCOHOL DEPENDENCE,ELEVATED TROPONIN 1 LEVEL Current Active Problems Elevated troponin (Acute) Rhabdomyolysis (Acute) Rib pain on left side (Acute) Alcohol dependence (Chronic) Condition: Stable - Instructions Diet, Activity, Other Instructions: Your visit: You were admitted to the hospital for frequent alcohol use and recent falls. You received a CAT scan of your head, chest, and abdomen, which did not show any fractures or active disease. We monitored you overnight . You received a CAT scan of your abdomen which showed signs of inflammation in your stomach. We will prescribe you with medications to treat this inflammation and recommend that you follow up with a [facility] as an outpatient ( see instructions below). Also you were noted with mild elevation in blood test for your heart (troponin) . You were seen by rrts and had a 2D echo and will benefit from cardiology follow up outpatient. Medications: - Take Protonix 40mg once a day to treat the inflammation in your abdomen. - Resume all home medications as prescribed. Follow-up: - Please follow up with a [facility], Dr. Harris, in one week. We provided you with a referral. - Please follow up with your primary care provider, Dr. Deutsch, in one week. - Follow up with rrts Dr. Jensen in 2-3 weeks. Additional instructions: - We encourage that you stop drinking alcohol as it is damaging to your health and may put you at risk for further falls. We recommend that you attend a rehab facility to help you decrease your alcohol intake. - Incentive spirometry every hour as able when awake. - Strongly recommend compliance with your home BP medications - Cardiology and gastroenterology follow up as above - Ongoing follow up at the Drug rehab Call 911 or return to the emergency department if you experience any worsening tremors, falls or imbalance, dizziness, hallucinations, chest pain, fevers, or any other symptoms. Referrals: Lori Harris MD [Staff Physician] - 1 Week Ari Deutsch [Primary Care Provider] - Disposition: HOME - Home Medications Comprehensive Discharge Medication List: Ambulatory Orders Aripiprazole 5 mg PO DAILY 01/13/19 Duloxetine HCl 60 mg PO DAILY 01/13/19 Folic Acid 1 mg PO DAILY 01/13/19 Trazodone HCl 150 mg PO HS 01/13/19 Rosuvastatin Calcium [Crestor] 10 mg PO DAILY 01/14/19 Clonidine HCl 0.1 mg PO BID PRN 01/15/19 Ergocalciferol [Vitamin D2] 50,000 unit PO Q7D@1000 01/15/19 Thiamine HCl [B-1] 100 mg PO DAILY 01/15/19 Amlodipine Besylate [Norvasc -] 2.5 mg PO DAILY 05/18/19 Azilsartan Medoxomil [Edarbi] 40 mg DAILY 05/18/19 Cyanocobalamin [Vitamin B12 -] 1,000 mg DAILY 05/18/19 Disulfiram [Antabuse] 250 mg DAILY 05/18/19 Pantoprazole Sodium [Protonix] 40 mg PO DAILY #30 tablet. 05/18/19 Prazosin HCl [Minipress] 2 mg PO DAILY 05/18/19 This patient is new to me today: Yes Date on this admission: 05/18/19 Emergency Visit: Yes ED Registration Date: 05/18/19 Care time: The patient presented to the Emergency Department on the above date and was hospitalized for further evaluation of their emergent condition. Critical Care patient: No - Discharge Referral Referred to [facility] No ATTENDING PHYSICIAN STATEMENT I saw and evaluated the patient. I reviewed the resident's note and discussed the case with the resident. I agree with the resident's findings and plan as documented. SUBJECTIVE: OBJECTIVE: ASSESSMENT AND PLAN:
[2019-05-19] MEDS ORDERED: chlordiazePOXIDE 5 MG CAPSULE PO SCH (05:00)
[2019-05-20] MEDS ORDERED: chlordiazePOXIDE HCL 10 MG CAPSULE PO PRN
[2019-05-20] MEDS ORDERED: chlordiazePOXIDE HCL 10 MG CAPSULE PO SCH (05:00)
[2019-05-21] MEDS ORDERED: chlordiazePOXIDE HCL 10 MG CAPSULE PO ONE (05:00)
== END 2019-05-18 17:15 | disposition home or self-care (01) | DRG 775 ==
LOC: JER 18:03 → JERBED 23:31 → OBSVTOIN 05-18 03:52
PROVIDERS: ADMIT Internal Medicine; ATTEND Hospitalist
PROC: HZ2ZZZZ Detoxification Services for Substance Abuse Treatment (ICD-10-PCS; principal; 2019-05-17)
DX: F10.220 Alcohol dependence with intoxication, uncomplicated (principal); E86.0 Dehydration; E87.6 Hypokalemia; I10 Essential (primary) hypertension; G56.00 Carpal tunnel syndrome, unspecified upper limb; M62.82 Rhabdomyolysis; R29.6 Repeated falls; E78.5 Hyperlipidemia, unspecified; R51 Headache; F10.29 Alcohol dependence with unspecified alcohol-induced disorder; Y90.8 Blood alcohol level of 240 mg/100 ml or more; D72.829 Elevated white blood cell count, unspecified; R07.89 Other chest pain; I24.8 Other forms of acute ischemic heart disease
CPT/HCPCS: 36415; 70450-TC; 71250-TC; 72125-TC; 74150-TC; 74177-TC; 80053; 80307; 81003; 82550; 82553; 83735; 84100; 84484; 85025; 85610; 87086; 93005; 93010; 93306-TC; 99285-25; G0378; J0131; J7030; Q9967